=== PATIENT | female | born 1955 | race Caucasian/White ===

== ENCOUNTER → 2017-01-11 | Outpatient (REF) | payer BC | LOC: M SFHCPLAZ 11:55 | PROVIDERS: ATTEND Family Medicine | DX: Z11.59 Encounter for screening for other viral diseases (principal) ==

== ENCOUNTER → 2017-01-16 | Outpatient (CLI) | payer BC ==
--- NOTE | 2017-01-16 11:43 | REP ---
MR LUMBAR SPINE WITHOUT CONTRAST: HISTORY: Back pain. COMPARISON: 11/05/2013. Decreased signal intensity on T2-weighted images is present in the lumbar intervertebral discs. The L1-2 through L4-5 intervertebral discs are decrease in height. These findings are consistent with disc degeneration. There is no disc bulge or herniation at the L1-2 and L5-S1 levels. There is hypertrophy of the posterior articulating facets at the L5-S1. The nerves exit the neural foramina without compression. A diffuse disc bulge is present at the L2-3 level. There are 2 mm of retrolisthesis of L2 on 3. There is minimal compression of the thecal sac. There is hypertrophy of the posterior articulating facets. The L2 nerves exit the neural foramina without compression. A diffuse disc bulge is present at the L3-4 level. There is minimal compression of the thecal sac. There is hypertrophy of the posterior articulating facets. The L3 nerves exit the neural foramina without compression. A diffuse disc bulge is present at the L4-5 level. There is hypertrophy of the ligamental flava and posterior articulating facets. These findings produce minimal central canal stenosis. The L4 nerves exit the neural foramina without compression. The conus medullaris is normal in appearance terminating at the level of the L1-2 intervertebral disc. Normal signal intensity is present in the lumbar vertebral bodies. IMPRESSION: 1. Diffuse disc bulge and retrolisthesis at the L2-3 level with minimal thecal sac compression. 2. Diffuse disc bulge at the L3-4 level with minimal thecal sac compression. 3. Minimal central canal stenosis at the L4-5 level secondary to disc bulge ligamentous and facet hypertrophy. The retrolisthesis at the L2-3 level is a new finding. Signed by Tj Maier MD 01/16/2017 11:46 A
== END ==
LOC: M RAD 09:47
PROVIDERS: ATTEND Family Medicine
DX: M51.26 Other intervertebral disc displacement, lumbar region (principal); Z72.0 Tobacco use

== ENCOUNTER → 2017-03-01 | Outpatient (CLI) | payer BC ==
[~2017-03-01] MED LIST: GASTROGRAFIN SOLUTION 30ML (Q9963) As Ordered ONE; ISOVUE-370 76% 100ML VIAL (Q9967) As Ordered ONE
--- NOTE | 2017-03-02 06:56 | REP ---
Clinical: Right-sided abdominal pain with change in bowel habits. Technique: Axial contrast enhanced images from the lung bases to the pubic symphysis using oral and 100 ml Isovue 370 intravenous contrast material with precontrast images of the abdomen as well as coronal and sagittal re-formations. Findings: Lung bases demonstrate mild plate-like fibroatelectatic changes at the bases. Visualized portions of the heart and pericardium are normal. Liver, spleen, pancreas, gallbladder, bilateral adrenal glands and kidneys are normal. The enteric system is without obstruction or acute inflammatory process. Normal terminal ileum and appendix are identified in the right lower quadrant. Pelvis demonstrates normal bladder and age-appropriate uterus/adnexa small 1.1 cm calcified uterine fibroid is suggested along with cystic change to the right adnexa. No pelvic fluid or ascites. No adenopathy. No free air. Vasculature is normal. Surrounding musculoskeletal structures demonstrate degenerative changes to the lumbosacral spine. Impression: No acute intra-abdominal or pelvic pathology appreciated. Scattered mild chronic changes as described above. Signed by Jerrell Sandy MD 03/02/2017 06:48 A
== END ==
LOC: M RAD 13:49
PROVIDERS: ATTEND Physician Assistant Medical
DX: R10.11 Right upper quadrant pain (principal); R10.31 Right lower quadrant pain; R19.4 Change in bowel habit
CPT/HCPCS: 74178; Q9963; Q9967

== ENCOUNTER → 2017-05-22 | Outpatient (REF) | payer BC ==
[~2017-05-22] MED LIST changes: +ACET1TAB16; -GASTROGRAFIN SOLUTION 30ML (Q9963) As Ordered ONE; -ISOVUE-370 76% 100ML VIAL (Q9967) As Ordered ONE; +NAPR500T3; +OMEP20CA3; +POLY1POW4; +SIMV40TA2; +TESS100C PO; +TRAZ50TA11; +VENL150C43; +VITA200015
[2017-05-22 13:37] LABS: MEAN CORPUSCULAR HEMOGLOBIN 33.4 pg (27.0-33.0); MEAN CORPUSCULAR HGB CONC 33.7 g/dl (32.0-36.5); RED CELL DISTRIBUTION WIDTH 12.3 % (11.5-14.5)
[2017-05-22 13:50] LABS: ALBUMIN 3.5 GM/DL (3.2-5.2); ALBUMIN/GLOBULIN RATIO 1.09 (1.00-1.93); ALKALINE PHOSPHATASE 60 U/L (45-117); ALT/SGPT 19 U/L (12-78); ANION GAP 6 MEQ/L (8-16); AST/SGOT 15 U/L (15-37); BILIRUBIN,TOTAL 0.4 MG/DL (0.2-1.0); BLOOD UREA NITROGEN 17 MG/DL (7-18); CALCIUM LEVEL 9.3 MG/DL (8.8-10.2); CARBON DIOXIDE LEVEL 31 MEQ/L (21-32); CHLORIDE LEVEL 106 MEQ/L (98-107); CHOLESTEROL LEVEL 151 MG/DL (<200); CREATININE FOR GFR 0.86 MG/DL (0.55-1.02); GLOMERULAR FILTRATION RATE > 60.0 (>45); GLUCOSE, FASTING 103 MG/DL (80-110); POTASSIUM SERUM 4.6 MEQ/L (3.5-5.1); SODIUM LEVEL 143 MEQ/L (136-145); TOTAL PROTEIN 6.7 GM/DL (6.4-8.2); TRIGLYCERIDES LEVEL 119 MG/DL (<150)
== END ==
LOC: M LABDRAW1 10:27
PROVIDERS: ATTEND Family Medicine
DX: D51.9 Vitamin B12 deficiency anemia, unspecified (principal); E55.9 Vitamin D deficiency, unspecified; E78.00 Pure hypercholesterolemia, unspecified; I67.9 Cerebrovascular disease, unspecified; F32.9 Major depressive disorder, single episode, unspecified

== ENCOUNTER 2017-06-03 20:11 | Emergency (ER) | payer BC ==
[~2017-06-03] VITALS: Ht 162.6 cm; Wt 79.0 kg
[2017-06-03 20:12] VITALS: BP 139/64
[2017-06-03] MEDS ORDERED: SIMV40TA2 (20:21)
[2017-06-03] MEDS ORDERED: TRAZ50TA11 (20:21)
[2017-06-03] MEDS ORDERED: VITA200015 (20:21)
[2017-06-03] MEDS ORDERED: VENL150C43 (20:21)
[2017-06-03] MEDS ORDERED: NAPR500T3 (20:21)
[2017-06-03] MEDS ORDERED: OMEP20CA3 (20:21)
[2017-06-03] MEDS ORDERED: POLY1POW4 (20:21)
[2017-06-03] MEDS ORDERED: ACET1TAB16 (20:21)
[2017-06-03] MEDS ORDERED: TESS100C PO (21:14)
== END 2017-06-03 21:19 | disposition home or self-care (01) ==
LOC: M ED 20:11
DX: S20.219A Contusion of unspecified front wall of thorax, initial encounter (principal); X58.XXXA Exposure to other specified factors, initial encounter; Y92.9 Unspecified place or not applicable; Y93.9 Activity, unspecified; Y99.9 Unspecified external cause status; Z79.899 Other long term (current) drug therapy

== ENCOUNTER → 2017-06-08 | Outpatient (REF) | payer BC ==
[2017-06-08 17:22] LABS: MEAN CORPUSCULAR HEMOGLOBIN 33.2 pg (27.0-33.0); MEAN CORPUSCULAR HGB CONC 33.6 g/dl (32.0-36.5); MEAN CORPUSCULAR VOLUME 98.9 fl (80.0-96.0); RED CELL DISTRIBUTION WIDTH 12.5 % (11.5-14.5); WHITE BLOOD COUNT 7.3 K/mm3 (4.0-10.0)
[2017-06-08 18:31] LABS: COLLAGEN ADP 106 SECONDS (56-103)
== END ==
LOC: M SFHCPLAZ 15:10
PROVIDERS: ATTEND Family Medicine
DX: R05 Cough (principal); N64.89 Other specified disorders of breast

== ENCOUNTER → 2017-06-12 | Outpatient (CLI) | payer BC ==
--- NOTE | 2017-06-12 13:06 | REP ---
Chest x-ray: Two views. History: Cough. Comparison chest x-ray October 08, 2015. Findings: There is a zone of linear fibrosis in the right middle lobe unchanged from the comparison study. The lungs are otherwise well inflated and clear. Pleural angles are sharp. Mild linear fibrosis is seen in the left base as well also unchanged. There is a granulomatous calcification in the left lower lobe unchanged. Heart size is normal. Pulmonary vasculature is not increased. Impression: No active disease. Signed by Andrade Shay MD 06/12/2017 03:01 P
== END ==
LOC: M RAD 11:45
PROVIDERS: ATTEND Family Medicine
DX: R05 Cough (principal)

== ENCOUNTER → 2017-09-21 | Outpatient (CLI) | payer BC ==
--- NOTE | 2017-09-21 14:10 | REP ---
Clinical: Persistent cough. Comparison: 04/13/2012. Findings: The bilateral lung lofton are well-aerated and clear. Minimal plate-like chronic fibrosis in the right mid lung and left base are unchanged. No consolidation, significant nodule, or mass lesion. Calcified nodule in the left lower lobe consistent with prior granulomas disease. No pleural effusion/reaction. No significant interstitial disease. Tracheobronchial tree is patent and without bronchiectasis. The mediastinum is unremarkable and without adenopathy. Pulmonary vasculature and thoracic aorta appear normal. The heart and pericardium are unremarkable. Surrounding musculoskeletal structures are intact. Impression: Normal noncontrast chest CT. No significant mediastinal or pleuroparenchymal process. Signed by Jerrell Sandy MD 09/21/2017 02:01 P
== END ==
LOC: M RAD 13:17
PROVIDERS: ATTEND Nurse Practitioner Family
DX: R05 Cough (principal)

== ENCOUNTER → 2018-04-23 | Outpatient (REF) | payer OTHER ==
[2018-04-25 00:09] LABS: Lyme Disease IgG/IgM Antibodie <0.91 ISR (0.00-0.90); Lyme Disease IgM Ab Quantitati <0.80 index (0.00-0.79)
== END ==
LOC: M SFHCPLAZ 11:04
DX: Z11.2 Encounter for screening for other bacterial diseases (principal); W57.XXXA Bitten or stung by nonvenomous insect and other nonvenomous arthropods, initial encounter
CPT/HCPCS: 36415

== ENCOUNTER → 2018-05-22 | Outpatient (REF) | payer OTHER ==
[2018-05-24 14:14] LABS: HPV HYBRID CAPTURE II Negative (Negative)
== END ==
LOC: M SFHCPLAZ 11:35
DX: Z12.4 Encounter for screening for malignant neoplasm of cervix (principal)

== ENCOUNTER 2018-05-28 12:06 | Outpatient (RCR) | payer OTHER | END 2018-06-22 | LOC: M PT 12:06 | DX: Z51.89 Encounter for other specified aftercare (principal); M54.5 Low back pain | CPT/HCPCS: 97010 ==

== ENCOUNTER → 2018-05-30 | Outpatient (CLI) | payer OTHER | LOC: M WHC 10:22 | DX: Z12.31 Encounter for screening mammogram for malignant neoplasm of breast (principal); Z78.0 Asymptomatic menopausal state | CPT/HCPCS: 77067 ==

== ENCOUNTER 2018-07-02 10:32 | Outpatient (RCR) | payer OTHER | END 2018-07-22 | LOC: M PT 10:32 | DX: Z51.89 Encounter for other specified aftercare (principal); M54.5 Low back pain | CPT/HCPCS: 97110 ==

== ENCOUNTER 2018-11-24 17:14 | Observation (INO) | payer MEDICAID, MEDICARE, OTHER ==
[~2018-11-24] VITALS: Ht 162.6 cm; Wt 74.1 kg
[~2018-11-24 17:14] MED LIST changes: +NAPR-885; -NAPR500T3; -OMEP20CA3; +OMEP20CA3 PO; -POLY1POW4; +POLY33503; -SIMV40TA2; +SIMV40TA2 PO; +TRAZ-160 PO; -TRAZ50TA11; -VENL150C43; +VENL150C43 PO; -VITA200015; +VITA200015 PO
[2018-11-24] MEDS ORDERED: KETOROLAC 30 MG/ML VIAL (J1885) IV ONE (18:15)
[2018-11-24] MEDS ORDERED: ACETAMINOPHEN 325 MG TAB PO ONE (18:15)
[2018-11-24] MEDS ORDERED: LIDO5CRE6 TOP (18:43)
[2018-11-24] MEDS ORDERED: LIDOCAINE 5% (LIDODERM) PATCH TD ONE (18:45)
[2018-11-24 19:28] LABS: BLOOD UREA NITROGEN 18 MG/DL (7-18); CARBON DIOXIDE LEVEL 28 MEQ/L (21-32); CHLORIDE LEVEL 104 MEQ/L (98-107); CREATININE FOR GFR 0.85 MG/DL (0.55-1.30); GLOMERULAR FILTRATION RATE > 60.0 (>45); GLUCOSE, FASTING 138 MG/DL (70-100); SODIUM LEVEL 139 MEQ/L (136-145)
[2018-11-24] MEDS ORDERED: ISOVUE-370 76% 100ML VIAL (Q9967) As Ordered ONE (19:36)
--- NOTE | 2018-11-24 20:12 | REP ---
Clinical: Severe pain. Rule out aortic dissection. Technique: Axial contrast enhanced images from the thoracic inlet to the upper abdomen with coronal and sagittal re-formations using 100 ml Isovue 370 intravenous contrast material. Images obtained in arterial phase enhancement. Comparison: 09/21/2017. Findings: Appropriate enhancement of the thoracic aorta was obtained and the thoracic aorta is normal in caliber and without atherosclerotic disease, aneurysmal dilatation, or dissection. Heart and pericardium are normal. Pulmonary vasculature appears normal and without evidence for embolus. The bilateral lung lofton are well-aerated and clear. No consolidation, pleural effusion or pneumothorax. No obvious nodule or mass lesion identified. Tracheobronchial tree is patent. No axillary, hilar, or mediastinal adenopathy. Surrounding musculoskeletal structures of the thorax are intact and normal. Impression: Normal contrast enhanced CT of the chest. Normal appearance to the thoracic aorta without aneurysm or dissection. No acute mediastinal or pleuroparenchymal process. Electronically Signed by Jerrell Sandy MD 11/24/2018 08:03 P
--- NOTE | 2018-11-24 20:12 | REP ---
Clinical: Severe pain. Rule out abdominal aortic aneurysm or dissection. Technique: Axial contrast enhanced images from the lung bases to the pubic symphysis with coronal and sagittal re-formations using 100 ml Isovue 370 intravenous contrast material. Images obtained in arterial phase enhancement. Comparison: 03/01/2017. Findings: The descending thoracic aorta and abdominal aorta through the bifurcation to common iliac arteries is normal in appearance and without aneurysm or dissection. Branch vessels including celiac axis, superior mesenteric artery, bilateral renal arteries, inferior mesenteric artery, and bilateral internal and external iliac arteries as well as major branch vessels through the pelvis and groin are normal. There is no evidence for atherosclerotic disease. Liver, spleen, pancreas, gallbladder, right adrenal gland and bilateral kidneys are normal. 1.3 cm enhancing left adrenal nodule appears relatively stable when compared to chest CT dated 2011. Enteric system is without obstruction or acute inflammatory process. Normal terminal ileum and appendix are identified in the right lower quadrant. Scattered sigmoid diverticula noted without acute diverticulitis. Pelvis demonstrates normal bladder and age-appropriate uterus/adnexa. No ascites. No free air. No adenopathy. Musculoskeletal structures demonstrate degenerative changes to the lumbosacral spine without focal osseous abnormality. Impression: 1. Normal appearance to the abdominal aorta and branch vessels without evidence for atherosclerotic disease, aneurysm, or dissection. 2. Sigmoid diverticula without acute diverticulitis. 3. Stable 1.3 cm left adrenal nodule likely atypical adenoma. 4. No acute abdominopelvic pathology appreciated. No ascites, focal inflammatory stranding, or adenopathy. Electronically Signed by Jerrell Sandy MD 11/24/2018 08:04 P
[2018-11-24] MEDS: **NOTE PATIENT COMMENT** MISC XX SCH ×2 (20:59→21:14)
[2018-11-24] MEDS ORDERED: PERCOCET 5MG/325MG TAB PO ONE (21:00)
[2018-11-24] MEDS ORDERED: CYCLOBENZAPRINE 10 MG TAB PO ONE (22:30)
[2018-11-25] MEDS ORDERED: NAPR-885 PO (01:00)
[2018-11-25] MEDS ORDERED: PERCOCET 5MG/325MG TAB PO PRN (01:00)
[2018-11-25] MEDS ORDERED: ZOLP5TAB PO (01:01)
[2018-11-25 01:53] LABS: HEMOGLOBIN 13.6 g/dl (12.0-15.5); MEAN CORPUSCULAR HEMOGLOBIN 32.5 pg (27.0-33.0); MEAN CORPUSCULAR HGB CONC 33.2 g/dl (32.0-36.5); MEAN CORPUSCULAR VOLUME 98.1 fl (80.0-96.0); PLATELET COUNT, AUTOMATED 215 10^3/uL (150-450); RED BLOOD COUNT 4.18 10^6/uL (4.00-5.40)
[2018-11-25 02:00] VITALS: BP 176/88
[2018-11-25] MEDS: zolPIDEM TARTRATE 5 MG TAB PO SCH ×2 (03:25→21:39)
[2018-11-25] MEDS: OMEPRAZOLE 20 MG CAP PO SCH ×3 (03:30→21:39)
[2018-11-25] MEDS: VITAMIN D 1,000 INTERNATIONAL UNITS TABLET PO SCH ×2 (03:30→21:39)
[2018-11-25] MEDS: traZODone 50 MG TAB PO SCH ×2 (03:31→21:39)
[2018-11-25] MEDS: SIMVASTATIN 40 MG TAB PO SCH ×2 (03:31→21:39)
[2018-11-25] MEDS: HEPARIN SOD (PORCINE) 5000 UNITS/ML VIAL SC SCH ×3 (05:33→21:40)
[2018-11-25 06:00] VITALS: BP_SYST 133; BP_SYST 176; BP_DIAS 73; BP_DIAS 88
[2018-11-25] MEDS ORDERED: **NOTE PATIENT COMMENT** MISC XX ONE (06:00)
--- NOTE | 2018-11-25 08:14 | REP ---
Clinical: Trauma. Fall. Technique: Neutral and frog lateral views of the right hip with frontal view of the pelvis. Findings: No acute fracture dislocation. Skeletal structures, joint spaces, and surrounding soft tissues are essentially normal for age. Contrast in the bladder from recent CT examination. Impression: No acute fracture or dislocation. Electronically Signed by Jerrell Sandy MD 11/25/2018 08:06 A
[2018-11-25] MEDS: CYCLOBENZAPRINE 5MG TABLET PO PRN ×2 (09:02→21:39)
[2018-11-25] MEDS: VENLAFAXINE **XR** 75MG CAPSULE PO SCH (09:03)
--- NOTE | 2018-11-25 09:25 | HPE ---
DATE OF ADMISSION: 11/25/2017 CHIEF COMPLAINT: She has lumbosacral paraspinal tenderness, nonradiating, significantly worsening over the last 24-48 hours. PAST MEDICAL HISTORY: The patient is a 63-year-old female. She has a significant past medical history of chronic lower back pain secondary to degenerative joint disease, acid reflux, hyperlipidemia, depression. She is a patient of Dr. Barney. She presented to the emergency room after she had a fall approximately 3-4 days ago. The patient states over the last 36-48 hours, she has had significantly worsening lumbosacral paravertebral back pain, which is exacerbated by movement. The patient has no focal deficit. Sensation appears intact. She has no numbness or paresthesias. She has no bowel or urinary incontinence. Power is limited in the lower extremities secondary to pain. However, there are no neurological signs. She denies any cough, chest pain, shortness of breath, abdominal pain, or urinary symptoms. PAST MEDICAL HISTORY: See history of present illness (HPI). PAST SURGICAL HISTORY: She has had ankle surgery secondary to trauma and fracture. HOME MEDICATIONS: Include: - vitamin D - omeprazole - Zocor - trazodone - Effexor - naproxen as needed Previously, she was on Tylenol with codeine. However, her primary care provider decided to discontinue this and give her a trial of naproxen to control her back pain secondary to degenerative joint disease. ALLERGIES: No known drug allergies. SOCIAL HISTORY: She is a current smoker, 1/2 pack per day. Denies alcohol or illicit drug use. FAMILY HISTORY: Of heart disease, hypertension, diabetes, emphysema. REVIEW OF SYSTEMS: A 12-point review of systems was completed, all of which were negative except those listed in the history of present illness (HPI). ADMISSION VITAL SIGNS: 97.5, 68, 14, saturating at 99% on room air, blood pressure 126/76. PHYSICAL EXAMINATION: GENERAL: She appears well-nourished, mild distress secondary to lumbosacral, sort of paravertebral-type pain. This pain is nonradiating. No numbness or paresthesias noted. HEAD: Is normocephalic, atraumatic. EYES: Extraocular movements are intact. Pupils equal, round, and reactive to light. NECK: Is supple. No jugular venous pressure (JVP). LUNGS: Clear to auscultation on the anterior chest. She was not able to sit up so I could listen to the bases of the lungs. No crackles or wheezing. CARDIOVASCULAR: Regular rate and rhythm. Normal S1, S2. No murmurs, gallops, or rub. ABDOMEN: Is soft, nontender, nondistended. Positive bowel sounds. No rebound. No guarding. She was not able to sit up that I can assess her costovertebral angle (CVA) tenderness. EXTREMITIES: No pitting edema or calf tenderness. SKIN: Is intact. No rashes, lesion. NEUROLOGICAL EXAMINATION: She is alert and oriented times three. Sensation is intact to fine touch in the bilateral upper and lower extremities. Power appears to be intact, somewhat limited secondary to pain in the lower extremities bilaterally. LABORATORIES AND IMAGING: Completed in the emergency room. She does not have a complete blood count (CBC), which I will order immediately, but her basic metabolic profile (BMP) showed a BUN and creatinine of 18/0.85. The rest of it is relatively unremarkable. Will also order a urinalysis to assess for a urinary tract infection (UTI). In the emergency room, she had hip/pelvis x-rays, which have not been officially read, but my evaluation, I do not see any dislocation or fractures. She also had CT angiography of the chest, as well as abdomen and pelvis. The CT of the chest shows a normal contrast enhanced CT of the chest. The CT angiography of the abdomen and pelvis shows normal appearance of the abdominal aorta and the branches, sigmoid diverticula, an atypical adenoma 1.3 cm. The musculoskeletal area of the lumbosacral region shows degenerative changes to the lumbosacral spine without focal osseous abnormality. ASSESSMENT AND PLAN: 1. Intractable back pain, possibly secondary to the spasms or degenerative joint disease. There are no neurological signs. There is no radiation of the pain or numbness or paresthesias to suggest radiculopathy. Will get a physical therapy evaluation. Percocet as needed. Flexeril as needed. I am unclear if there is a level of malingering to the patient's presentation. Will also get a urinalysis (UA) to assess for possible UTI. She does have flank pain. CT of the abdomen shows no signs of pyelonephritis. I was not able to assess for CVA tenderness, and the patient does not appear toxic during the examination and also denies any urinary symptoms. For the rest of her chronic medical conditions: 2. For gastroesophageal reflux disease (GERD), continue omeprazole. 3. For hyperlipidemia, continue Zocor. 4. For depression, continue trazodone and venlafaxine. 5. For insomnia, continue Ambien as needed. 6. Supportive deep venous thrombosis (DVT) prophylaxis, heparin subcutaneously. 7. Gastrointestinal (GI) prophylaxis, she is already on omeprazole. I will be cautious with the administration of Flexeril, as the patient has some chronic Effexor therapy, will not continue this long-term. The patient to be placed on the observation unit.
[2018-11-25 11:50] VITALS: BP 143/71
[2018-11-25] MEDS: MORPHINE 4 MG/ML 1ML VIAL/SYRINGE (J2270) IV PRN ×2 (11:53→18:18)
[2018-11-25 12:35] LABS: AMORPHOUS SEDIMENT SMALL (NEGATIVE); APPEARANCE, URINE HAZY (CLEAR); BACTERIA, URINE AUTO 1+ (NEGATIVE); BILIRUBIN, URINE AUTO NEGATIVE (NEGATIVE); BLOOD, URINE BLOOD 2+ (NEGATIVE); COLOR, URINE YELLOW (YELLOW); GLUCOSE, URINE (UA) AUTO NEGATIVE (NEGATIVE); KETONE, URINE AUTO 1+ mg/dL (NEGATIVE); LEUKOCYTE ESTERASE, URINE AUTO 3+ (NEGATIVE); NITRITE, URINE AUTO NEGATIVE (NEGATIVE); PROTEIN, URINE AUTO NEGATIVE (NEGATIVE); RBC, URINE AUTO 28 /HPF (0-3); SPECIFIC GRAVITY URINE AUTO 1.036 (1.002-1.035); SQUAMOUS EPITHELIAL CELL UR AU 4 /HPF (0-6); UROBILINOGEN, URINE AUTO 0.2 mg/dL (0.0-2.0); WBC, URINE AUTO 79 /HPF (0-3)
[2018-11-25 14:55] VITALS: BP 132/61
[2018-11-25] MEDS: PERCOCET 5MG/325MG TAB PO PRN ×2 (15:00→21:41)
[2018-11-25] MEDS ORDERED: HEPARIN SOD (PORCINE) 5000 UNITS/ML VIAL As Ordered ONE (21:34)
--- NOTE | 2018-11-25 21:55 | IPN ---
DATE: 11/25/2018 Mary is a patient of Dr. Werner, presented with intractable back pain. She has a history of degenerative disc disease. She has an MRI of her lumbosacral spine 01/16/2017 that showed diffuse disc bulges, retrolisthesis at the L2-3 level, with minimal thecal sac compression, minimal septal canal stenosis at L4-5. They noted the retrolisthesis of L2-3 was new compared to prior MRI from 10/2013. She is in significant pain and feels unable to even get out of bed. She had a CT angiogram that ruled out aneurysm or dissection. PHYSICAL EXAMINATION: 143/87, pulse 65, respiratory rate 16, 96% oxygen saturation. She is lying in bed and cannot role left to right. LUNGS: Clear. HEART: Regular rate and rhythm. ABDOMEN: Soft. LOWER BACK: Tender to palpate. Spastic. Could not visualize the area. Normal strength in the lower extremities. IMPRESSION: Intractable back pain. PLAN: I have augmented her analgesic regimen with morphine and higher doses of Percocet. I have ordered MRI of the lumbosacral spine. Physical therapy has been consulted. Rehabilitation has been consulted.
[2018-11-25 22:00] VITALS: BP 111/57
[2018-11-26] MEDS: PERCOCET 5MG/325MG TAB PO PRN ×3 (05:08→19:17)
[2018-11-26] MEDS: HEPARIN SOD (PORCINE) 5000 UNITS/ML VIAL SC SCH ×3 (05:08→21:12)
[2018-11-26 06:00] VITALS: BP 114/62
[2018-11-26 07:26] LABS: HEMATOCRIT 39.1 % (36.0-47.0); HEMOGLOBIN 12.9 g/dl (12.0-15.5); MEAN CORPUSCULAR HEMOGLOBIN 32.6 pg (27.0-33.0); MEAN CORPUSCULAR VOLUME 98.7 fl (80.0-96.0); PLATELET COUNT, AUTOMATED 209 10^3/uL (150-450); RED BLOOD COUNT 3.96 10^6/uL (4.00-5.40); WHITE BLOOD COUNT 7.1 10^3/uL (4.0-10.0)
[2018-11-26 08:37] LABS: CALCIUM LEVEL 9.6 MG/DL (8.8-10.2); CREATININE FOR GFR 1.15 MG/DL (0.55-1.30); GLOMERULAR FILTRATION RATE 50.4 (>45); POTASSIUM SERUM 4.2 MEQ/L (3.5-5.1)
--- NOTE | 2018-11-26 09:45 | REP ---
MRI LUMBAR SPINE WITHOUT CONTRAST: HISTORY: Back pain. COMPARISON: 01/16/2017. Decreased signal intensity on T2-weighted images is present in the lumbar intervertebral discs. The L1-2 through L4-5 intervertebral discs are decreased in height. These findings are consistent with disc degeneration. There is no disc bulge or herniation at the L1-2 and L5-S1 levels. There is hypertrophy of the posterior articulating facets at the L5-S1 level. The nerves exit the neural foramina without compression. A diffuse disc bulge is present at the L2-3 level. There is minimal compression of the thecal sac. There is hypertrophy of the posterior articulating facets. The L2 nerves exit the neural foramina without compression. A diffuse disc bulge is present at the L3-4 level. There is minimal compression of the thecal sac. There is hypertrophy of the posterior articulating facets. The L3 nerves exit the neural foramina without compression. A diffuse disc bulge is present at the L4-5 level. There is hypertrophy of the ligamenta flava and posterior articulating facets. These findings produce minimal central canal stenosis. The L4 nerves exit the neural foramina without compression. The conus medullaris is normal in appearance terminating at the level of the L1-2 intervertebral disc. Normal signal intensity is present in the lumbar vertebral bodies. IMPRESSION: 1. Diffuse disc bulges at the L2-3 and L3-4 levels with minimal thecal sac compression. 2. Minimal central canal stenosis at the L4-5 level secondary to disc bulge, ligamentous and facet hypertrophy. There is no significant change compared to the previous study. Electronically Signed by Tj Maier MD 11/26/2018 09:49 A
[2018-11-26] MEDS: OMEPRAZOLE 20 MG CAP PO SCH ×2 (10:03→21:09)
[2018-11-26] MEDS: VENLAFAXINE **XR** 75MG CAPSULE PO SCH (10:03)
[2018-11-26 14:05] VITALS: BP 115/56
--- NOTE | 2018-11-26 18:04 | IPNPDOC ---
Subjective Date Seen The patient was seen on 11/26/18. Subjective Chief Complaint/HPI Lumbosacral pain Events since last encounter Patient notes pain improvement with pain medication. Morphine helped with pain, last used yesterday. Is currently taking oxycodone/acetaminophen, takes naproxen at home. Has been able to walk around since coming to the hospital since morphine helped with pain. When shifts in bed does still feel burning in low back. Denies changes in pain, changes in sensation at this time. Has history of low back pain. ENT: Denies: Head Aches Pulmonary: Denies: Dyspnea, Cough Cardiovascular: Denies: Chest Pain Objective Physical Examination General Exam: Positive: Alert, Cooperative Eye Exam: Positive: PERRLA ENT Exam: Positive: Atraumatic Neck Exam: Positive: Supple; Negative: JVD Chest Exam: Positive: Clear to auscultation Heart Exam: Positive: Rate Normal Abdomen Exam: Positive: Normal bowel sounds Extremity Exam: Positive: Clubbing; Negative: Cyanosis, Edema Skin Exam: Positive: Other skin issue (ecchymosis right upper quadrant abdomen. ) Psych Exam: Positive: Mental status NL Assessment /Plan Problems (1) Intractable back pain Status: Acute Problem Text: Patient noted improvement with pain medication. Has not used morphine since yesterday, will d/c today. Can give one time if needed. Pain controlled on oxycodone/acetaminophen. Restarting home naproxen to assist with pain control. MRI did not reveal much change from previous MRI. Suspect musculoskeletal cause of pain likely secondary to fall from before admission. Adding nsaids may assist with pain control. Encourage stretching while in bed. PT ordered, continue to work at this time. (2) Low back pain Status: Acute Problem Text: History of low back pain. On Naproxen at home. (3) GERD (gastroesophageal reflux disease) Problem Text: Continue omeprazole. (4) Depression Problem Text: Continue trazodone and venlafaxine. (5) Hyperlipidemia Problem Text: Continue Zocor. (6) Insomnia Problem Text: Continue ambien. Plan/VTE VTE Prophylaxis Ordered?: Yes VS, I&O, 24H, Fishbone Vital Signs/I&O Vital Signs Date Time Temp Pulse Resp B/P (MAP) Pulse Ox O2 Delivery O2 Flow Rate FiO2 11/26/18 14:05 98.0 72 18 115/56 (75) 95 2//19 01:25 Room Air I&O- Last 24 Hours up to 6 AM 11/26/18 06:00 Intake Total 1320 ml Output Total 500 ml Balance 820 ml Laboratory Data 24H LABS Laboratory Tests 2 11/25/18 20:56: Urine Color YELLOW, Urine Appearance HAZY, Urine pH 5.0, Urine Specific [place] 1.029, Urine Protein 1+H, Urine Glucose (UA) NEGATIVE, Urine Ketones TRACEH, Urine Blood 2+H, Urine Nitrite NEGATIVE, Urine Bilirubin NEGATIVE, Urine Urobi linogen 2.0H, Urine Leukocyte Esterase TRACEH, Urine WBC (Auto) 3, Urine RBC (Auto) 13H, Urine Hyaline Casts (Auto) 0, Urine Bacteria (Auto) NEGATIVE, Urine Squamous Epithelial Cells 2, Urine Mucus (Auto) SMALL, Urine Sperm (Auto) 11/26/18 06:42: Nucleated Red Blood Cells % (auto) 0.0, Anion Gap 6L, Glomerular Filtration Rate 50.4, Blood Urea Nitrogen 28#H, Creatinine 1.15, Sodium Level 141, Potassium Level 4.2, Chloride Level 105, Carbon Dioxide Level 30, Calcium Level 9.6 CBC/BMP Laboratory Tests 11/26/18 06:42 Red Blood Count 3.96 L, Mean Corpuscular Volume 98.7 H, Mean Corpuscular Hemoglobin 32.6, Mean Corpuscular Hemoglobin Concent 33.0, Red Cell Distribution Width 12.8, Calcium Level 9.6 Microbiology Microbiology 11/25/18 Urine Culture - Final, Complete GME ATTESTATION GME ATTESTATION My faculty preceptor for this patient encounter was physically present during t he encounter and was fully available. All aspects of the patient interview, examination, medical decision making process, and medical care plan development were reviewed and approved by the faculty preceptor. The faculty preceptor is aware and concurs with the plan as stated in the body of this note and will attest to such by his/her cosignature. BRIAN ASHBY DO Nov 26, 2018 17:25
[2018-11-26 20:00] VITALS: BP 123/74
[2018-11-26] MEDS: VITAMIN D 1,000 INTERNATIONAL UNITS TABLET PO SCH (21:09)
[2018-11-26] MEDS: zolPIDEM TARTRATE 5 MG TAB PO SCH (21:09)
[2018-11-26] MEDS: traZODone 50 MG TAB PO SCH (21:10)
[2018-11-26] MEDS: SIMVASTATIN 40 MG TAB PO SCH (21:10)
[2018-11-26] MEDS: NAPROXEN 250 MG TAB PO SCH (21:12)
[2018-11-27] MEDS: PERCOCET 5MG/325MG TAB PO PRN ×4 (00:12→12:42)
[2018-11-27 04:00] VITALS: BP 117/57
[2018-11-27] MEDS: HEPARIN SOD (PORCINE) 5000 UNITS/ML VIAL SC SCH (04:19)
[2018-11-27 07:03] LABS: HEMATOCRIT 36.5 % (36.0-47.0); HEMOGLOBIN 12.2 g/dl (12.0-15.5); MEAN CORPUSCULAR HEMOGLOBIN 32.9 pg (27.0-33.0); MEAN CORPUSCULAR HGB CONC 33.4 g/dl (32.0-36.5); MEAN CORPUSCULAR VOLUME 98.4 fl (80.0-96.0); PLATELET COUNT, AUTOMATED 188 10^3/uL (150-450); RED BLOOD COUNT 3.71 10^6/uL (4.00-5.40); WHITE BLOOD COUNT 6.5 10^3/uL (4.0-10.0)
[2018-11-27 07:28] LABS: CREATININE FOR GFR 1.01 MG/DL (0.55-1.30); GLOMERULAR FILTRATION RATE 58.6 (>45); POTASSIUM SERUM 4.2 MEQ/L (3.5-5.1)
[2018-11-27 08:30] VITALS: BP 112/61
[2018-11-27] MEDS: VENLAFAXINE **XR** 75MG CAPSULE PO SCH (08:33)
[2018-11-27] MEDS: NAPROXEN 250 MG TAB PO SCH (08:37)
[2018-11-27] MEDS: OMEPRAZOLE 20 MG CAP PO SCH (08:37)
[2018-11-27] MEDS ORDERED: CYCL5TAB PO (11:08)
[2018-11-27] MEDS ORDERED: PERCOCET PO (11:08)
[2018-11-27] MEDS ORDERED: [UNRECOGNIZED DRUG - CODE] SC (11:08)
--- NOTE | 2018-11-27 17:08 | DSES ---
DATE OF ADMISSION: 11/25/2018 DATE OF DISCHARGE: 11/27/2018 BRIEF HISTORY AND PHYSICAL: The patient is a 63-year-old patient of Dr. Werner with a history of chronic low back pain who fell three or four days ago, and 2-3 days later, she developed significantly worsening lumbosacral paravertebral back pain exacerbated by movement with no focal deficit or numbness. No bowel or urinary incontinence. PAST MEDICAL HISTORY: Significant for chronic low back pain secondary to degenerative joint disease, acid reflux, hyperlipidemia, depression. She had been previously on Tylenol with Codeine but her primary care provider (PCP) had discontinued this and put her on naproxen. PERTINENT LABORATORY DATA ON ADMISSION: White count 10, hemoglobin 13.6, platelets 215,000. Sodium 139, potassium 4, BUN 18, creatinine 0.8, glucose 138. CT angiogram showed normal CT. Hip and pelvis showed no fracture or dislocation. Lumbar MRI showed diffuse disc bulging at L2-3, L3-4 with minimal thecal sac compression, minimal central canal stenosis at L4-5 secondary to disc bulge, ligamentous and facet hypertrophy. No significant change compared to previous study 01/16/2017. HOSPITAL COURSE: The patient was admitted for acute intractable low back pain. She was initially given IV morphine as well as Percocet and her naproxen has been restarted as well. Pain seems to be improving gradually, per patient that her pain is significantly improved at this time. She is able to get up out of bed, go to the bathroom by herself, but still somewhat limited by her pain and she has a large flight of stairs she is going to need to navigate at home. She lives alone. At this point, she is continued on Percocet but that would not be the long-term plan. The goal would be to manage her with naproxen and physical therapy, possibly getting her into the pain clinic for injections if felt warranted, and the Percocet should be used short-term. At this point, she is being transferred to acute rehabilitation for continued physical therapy and strengthening in order to be discharged home safely. MEDICATIONS: - naproxen 500 mg twice a day - oxycodone/acetaminophen 1-2 tablets every four hours as needed for pain - venlafaxine 150 mg daily - subcutaneous heparin 5000 international units every eight hours - trazodone 50 mg at bedtime - Ambien 5 mg at bedtime - vitamin D 2000 international units daily - Prilosec 20 mg twice a day - Zocor 40 mg at bedtime - Flexeril 5 mg every eight hours as needed for pain DISCHARGE DIAGNOSES: 1. Acute intractable low back pain. 2. Degenerative disc disease with minimal central canal stenosis at L4-5, chronic. 3. Depression.
== END 2018-11-27 13:50 ==
LOC: M ED 17:14 → M ED INP 18:11 → UNDOADMOB 11-25 00:37 → M ED INP 11-25 00:37 → M MS5PR 11-25 02:00 → M ED INP 11-25 02:00 → OBSVTOIN 11-25 09:25 → INTOOBSV 11-25 09:25 → M PED 11-26 14:00 → M MS5PR 11-26 14:00 → M PED 11-26 14:00 → UNDODISOB 11-27 13:50
PROVIDERS: ADMIT Internal Medicine; ATTEND Family Medicine
DX: M54.5 Low back pain (principal); M48.061 Spinal stenosis, lumbar region without neurogenic claudication; M51.36 Other intervertebral disc degeneration, lumbar region; E78.5 Hyperlipidemia, unspecified; F32.9 Major depressive disorder, single episode, unspecified; F17.210 Nicotine dependence, cigarettes, uncomplicated; Z79.899 Other long term (current) drug therapy; Z91.81 History of falling; G47.00 Insomnia, unspecified
CPT/HCPCS: 36415; 71275; 72148; 73502; 74174; 80048; 81001; 85027; 87086; 96372; 96374; 96375; 96376; 97116; 97161; 97165; 97530; 99284; G0378; J1885; J2270; Q9967

== ENCOUNTER 2018-11-27 11:36 | Inpatient (IN) | payer MEDICARE ==
[~2018-11-27 11:36] MED LIST changes: +CYCL5TAB PO; +LIDO5CRE6 TOP; +NAPR-885 PO; +PERCOCET PO; +ZOLP5TAB PO; +[UNRECOGNIZED DRUG - CODE] SC
[2018-11-27 14:00] VITALS: BP 117/55
[2018-11-27] MEDS ORDERED: BISACODYL 10 MG SUPP PR PRN (16:00)
[2018-11-27] MEDS ORDERED: zolPIDEM TARTRATE 5 MG TAB PO PRN (16:00)
[2018-11-27] MEDS ORDERED: PERCOCET 5MG/325MG TAB PO PRN (16:00)
[2018-11-27] MEDS ORDERED: MOM 30ML SUSPENSION UDC PO PRN (16:00)
[2018-11-27] MEDS ORDERED: ONDANSETRON 4 MG TAB (S0181) PO PRN (16:00)
[2018-11-27] MEDS ORDERED: ACETAMINOPHEN TAB 650MG DOSE (2X325MG) PO PRN (16:00)
[2018-11-27] MEDS: PERCOCET 5MG/325MG TAB PO SCH ×2 (17:20→20:42)
[2018-11-27] MEDS: BACLOFEN 5MG PER 1/2 TABLET PO SCH ×2 (17:20→20:42)
[2018-11-27 20:00] VITALS: BP 114/59
[2018-11-27] MEDS: HEPARIN SOD (PORCINE) 5000 UNITS/ML VIAL SC SCH (20:41)
[2018-11-27] MEDS: VITAMIN D 1,000 INTERNATIONAL UNITS TABLET PO SCH (20:41)
[2018-11-27] MEDS: NAPROXEN 250 MG TAB PO SCH (20:41)
[2018-11-27] MEDS: SENNA 8.6 MG TAB (SENOKOT) PO SCH (20:42)
[2018-11-27] MEDS: OMEPRAZOLE 20 MG CAP PO SCH (20:42)
[2018-11-27] MEDS: MAGNESIUM GLUCONATE 500 MG TAB PO SCH (20:42)
[2018-11-27] MEDS: DOCUSATE SODIUM 100 MG CAP PO SCH (20:42)
[2018-11-27] MEDS: SIMVASTATIN 40 MG TAB PO SCH (20:43)
[2018-11-27] MEDS: traZODone 50 MG TAB PO SCH (20:43)
[2018-11-28 06:00] VITALS: BP 115/57
[2018-11-28 06:54] LABS: BASO # 0.1 10^3/uL (0.0-0.2); BASO % 0.8 % (0.0-1.0); EOS # 0.4 10^3/uL (0.0-0.50); EOS % 6.9 % (0.0-3.0); HEMATOCRIT 35.6 % (36.0-47.0); HEMOGLOBIN 11.3 g/dl (12.0-15.5); LYMPH # 2.2 10^3/uL (1.5-4.5); LYMPH % 35.8 % (24.0-44.0); MEAN CORPUSCULAR HEMOGLOBIN 32.2 pg (27.0-33.0); MEAN CORPUSCULAR HGB CONC 31.7 g/dl (32.0-36.5); MEAN CORPUSCULAR VOLUME 101.4 fl (80.0-96.0); MONO # 0.5 10^3/uL (0.0-0.8); MONO % 7.5 % (0.0-5.0); NEUTROPHILS % 48.7 % (36.0-66.0); PLATELET COUNT, AUTOMATED 188 10^3/uL (150-450); RED BLOOD COUNT 3.51 10^6/uL (4.00-5.40); WHITE BLOOD COUNT 6.3 10^3/uL (4.0-10.0)
[2018-11-28 07:15] LABS: ALBUMIN 3.1 GM/DL (3.2-5.2); BILIRUBIN,TOTAL 0.1 MG/DL (0.2-1.0); CALCIUM LEVEL 9.1 MG/DL (8.8-10.2); CREATININE FOR GFR 1.1 MG/DL (0.55-1.30); GLOMERULAR FILTRATION RATE 53.1 (>45); TOTAL PROTEIN 5.9 GM/DL (6.4-8.2)
[2018-11-28] MEDS: MAGNESIUM GLUCONATE 500 MG TAB PO SCH ×2 (09:15→20:51)
[2018-11-28] MEDS: HEPARIN SOD (PORCINE) 5000 UNITS/ML VIAL SC SCH ×2 (09:15→20:52)
[2018-11-28] MEDS: OMEPRAZOLE 20 MG CAP PO SCH ×2 (09:15→20:52)
[2018-11-28] MEDS: DOCUSATE SODIUM 100 MG CAP PO SCH ×2 (09:15→20:52)
[2018-11-28] MEDS: VENLAFAXINE **XR** 75MG CAPSULE PO SCH (09:15)
[2018-11-28] MEDS: NAPROXEN 250 MG TAB PO SCH ×2 (09:16→20:52)
[2018-11-28] MEDS: PERCOCET 5MG/325MG TAB PO SCH ×3 (09:16→18:37)
[2018-11-28] MEDS: BACLOFEN 5MG PER 1/2 TABLET PO SCH ×3 (09:17→20:52)
--- NOTE | 2018-11-28 12:13 | HPEPDOC ---
Acid Dipper Note DATE OF ADMISSION: Nov 27, 2018 at 13:50 SOURCE OF ADMISSION INFORMATION:[facility] records and patient CHIEF COMPLAINT: low back pain with debility HISTORY OF PRESENT ILLNESS: 63F pmh chronic low back pain, Depression, GERD, HLD who fell at home onto a kassandra ing cabinet and had worsening low back pain for which she presented to [facility] ED on 11/25/18 reporting excruciating pain and difficulty walking. She denied any radiation of the pain, no focal weakness, no bowel/bladder incontinence. Initially there was concern for an abdominal aortic dissection for which a CT abdomen pelvis was ordered showing, Normal appearance to the abdominal aorta and branch vessels without evidence for atherosclerotic disease, aneurysm, or dissection. Sigmoid diverticula without acute diverticulitisStable 1.3 cm left adrenal nodule likely atypical adenoma. X-rays of her pelvis and right hip were negative for fracture. She was given morphine and Naproxen for pain relief and started on Flexeril. She was evaluated by therapy and found to have deficits n ambulation and ADLs and deemed medically appropriate for discharge to ARU on 11/27/18. On admssion she denied any radiating pain and reports never having had any back injections in the past. REVIEW OF SYSTEMS: The following is a completed review of systems and has been reviewed. Review of systems otherwise unremarkable. PAIN: Patient self reports no pain at rest, but low back pain with movement EYES: Negative for recent vision change EARS, NOSE, & THROAT: no throat pain, dysphagia, rhinorrhea CARDIOVASCULAR: denies chest pain or palpitations PULMONARY: Negative. Denies shortness of breath GASTROINTESTINAL: +constipation GENITOURINARY: Negative for dysuria or hematuria MUSCULOSKELETAL: +low back pain NEUROLOGICAL: no seizure or focal deficits HEMATOLOGICAL: + abdominal ecchymosis SKIN:intact PSYCHIATRIC: +depression All other review of systems found to be negative. PAST MEDICAL HISTORY: chronic low back pain, Depression, GERD, HLD PAST SURGICAL HISTORY: ankle surgery ALLERGIES: Please see below. MEDICATIONS: Please see below. SOCIAL HISTORY: Lives with her son, 1/2 pack a day smoker, no ETOH or illicit drugs DIET: Regular PHYSICAL EXAMINATION: VITAL SIGNS: Please see below. GENERAL: Pleasant and cooperative. No acute distress. HEENT: PERRL. Extraocular movements intact. Clear conjunctiva CARDIOVASCULAR: Regular rate and rhythm. No murmurs, rubs, or gallops LUNGS: Clear to auscultation bilaterally. No wheezes. No rhonchi ABDOMEN: Soft, nontender, nondistended. Positive bowel sounds. Normal active bowel sounds NEUROLOGICAL: Alert and oriented times three. Cranial nerves II through XII grossly intact. Sensation grossly intact in C5-T2 and L2-S2 dermatomes brisk patellar reflex, 2+/4 ankles equivocal babinksi bilat negative SLR bilat EXTREMITIES:5\5 strength bilateral upper extremities. 5\5 strength right lower extremity. 5/5 strength in left lower extremity. SKIN: abdominal ecchymosis IMAGING: Imaging documentation personally reviewed by record FUNCTIONAL STATUS: Premorbid: Independent with all activities of daily life as well as mobility On Admission: Contact Guard for ambulation with RW, grooming, lower body dressing, and toileting. GOALS: Independent without AD for ambulation, stairs, dressing, bathing, pain control, medical optimization, improve dynamic balance, assess for DME, family training. ASSESSMENT:63-year-old F with past medical history of low back pain who presents status post fall with intractable low back pain and debility. PLAN: 1. Rehab: OT/PT, assess for DME 2. Neuro: stable 3. Cardio: pmh HLD, continue statin 4. Resp: encourage incentive spirometry, monitor for cough 5. Pain: Percocet Naproxen, will stop Flexeril and trial baclofen 6. Psych: pmh depression, continue Venlafaxine, stable 7. : monitor PVRs and f/u admission UA and Ucx 8. DVT ppx: Heparin 9. GI ppx: Prilosec 10. Dispo: TBD POST ADMISSION PHYSICIAN EVALUATION: Medical and functional status: Description of medical status, medical assessment: As above. Rehabilitation diagnosis and current and prior cold morbid medical conditions as above. Risk of complications and plans to mitigate them as above. Description of functional status current status is as above. Prior status as above. Status compared to preadmission: There are no clinically significant differences between the patient's current status and the information described on the preadmission screening document. Treatment plan anticipated: Treatment plan is as described above. Required disciplines including physical therapy, occupational therapy, others as noted above. Intensity of services: 3 hours a day, 6 days a week. Special considerations: There are no specific special or safety considerations that would likely preclude immediate implementation of an intensive rehabilitation program or subsequently influence the plan of care ATTESTATION: Considering all the information above, it is my best judgment that this patient requires intensive rehabilitation therapy as described above and an inpatient hospital environment due to the complexity of nursing, medical, and rehabilitation needs required by the patient. Furthermore, this patient can reasonably be expected to participate in an benefit from an inpatient rehabilitation stay with an interdisciplinary team approach to the delivery of rehabilitation care under the direction and supervision of rehabilitation physician PROGNOSIS: Excellent ESTIMATED LENGTH OF STAY:8-10 days. PROJECTED DISCHARGE DESTINATION: Home with family support and any durable medical equipment required to increase functional safety and mobility TIME SPENT COUNSELING AND COORDINATING INITIAL CARE: Greater than 70 minutes. Vital Signs Vital Sign - Last 24 Hours 11/27/18 11/27/18 11/27/18 11/27/18 14:00 17:20 20:00 20:42 Temp 96.9 97.5 Pulse 72 72 Resp 18 16 18 18 B/P (MAP) 117/55 (75) 114/59 (77) Pulse Ox 94 93 11/28/18 11/28/18 11/28/18 06:00 09:16 09:46 Temp 98.2 Pulse 66 Resp 18 18 18 B/P (MAP) 115/57 (76) Pulse Ox 94 Laboratory Data CBC/BMP Laboratory Tests 11/28/18 06:24 Red Blood Count 3.51 L, Mean Corpuscular Volume 101.4 H, Mean Corpuscular Hemoglobin 32.2, Mean Corpuscular Hemoglobin Concent 31.7 L, Red Cell Distribution Width 13.0, Neutrophils (%) (Auto) 48.7, Lymphocytes (%) (Auto) 35.8, Monocytes (%) (Auto) 7.5 H, Eosinophils (%) (Auto) 6.9 H, Basophils (%) (Auto) 0.8, Neutrophils # (Auto) 3.0, Lymphocytes # (Auto) 2.2, Monocytes # (Auto) 0.5, Eosinophils # (Auto) 0.4, Basophils # (Auto) 0.1 11/28/18 06:25 Calcium Level 9.1, Aspartate Amino Transf (AST/SGOT) 15, Alanine Aminotransferase (ALT/SGPT) 16, Alkaline Phosphatase 72, Total Bilirubin 0.1 L, Total Protein 5.9 L, Albumin 3.1 L Labs 24H Laboratory Tests 2 11/28/18 06:24: Immature Granulocyte % (Auto) 0.3, White Blood Count 6.3, Red Blood Count 3.51L, Hemoglobin 11.3L, Hematocrit 35.6L, Mean Corpuscular Volume 101.4H, Mean C orpuscular Hemoglobin 32.2, Mean Corpuscular Hemoglobin Concent 31.7L, Red Cell Distribution Width 13.0, Platelet Count 188, Neutrophils (%) (Auto) 48.7, Lymphocytes (%) (Auto) 35.8, Monocytes (%) (Auto) 7.5H, Eosinophils (%) (Auto) 6.9H, Basophils (%) (Auto) 0.8, Neutrophils # (Auto) 3.0, Lymphocytes # (Auto) 2.2, Monocytes # (Auto) 0.5, Eosinophils # (Auto) 0.4, Basophils # (Auto) 0.1, Nucleated Red Blood Cells % (auto) 0.0 11/28/18 06:25: Anion Gap 3L, Glomerular Filtration Rate 53.1, Blood Urea Nitrogen 33H, Creatinine 1.10, Sodium Level 144, Potassium Level 4.0, Chloride Level 109H, Carbon Dioxide Level 32, Calcium Level 9.1, Aspartate Amino Transf (AST/SGOT) 15, Alanine Aminotransferase (ALT/SGPT) 16, Alkaline Phosphatase 72, Total Bilirubin 0.1L, Total Protein 5.9L, Albumin 3.1L, Albumin/Globulin Ratio 1.11 Home Medications Scheduled (Heparin Sodium) 5,000 Unit/Ml Inj, 5,000 UNITS SC Q8H Cholecalciferol (Vitamin D) 2,000 Unit Tab, 2,000 UNITS PO QHS, (Reported) Omeprazole (Omeprazole) 20 Mg Cap, 20 MG PO BID, (Reported) Simvastatin - High Dose (Simvastatin) 40 Mg Tab, 40 MG PO QHS, (Reported) Trazodone HCl (Trazodone HCl) 50 Mg Tab, 50 MG PO QHS, (Reported) Venlafaxine Hydrochloride (Venlafaxine HCl ER) 150 Mg Cap, 150 MG PO DAILY, (Reported) Zolpidem Tartrate (Zolpidem Tartrate) 5 Mg Tab, 5 MG PO QHS, (Reported) Scheduled PRN Cyclobenzaprine HCl (Cyclobenzaprine HCl) 5 Mg Tab, 5 MG PO Q8H PRN for BACK PAIN Naproxen (Naproxen) 500 Mg Tab, 500 MG PO Q6H PRN for PAIN, (Reported) Oxycodone/Acetaminophen (Percocet 5MG/325MG Tablet) 1 Tab Tab, 1 TAB PO Q4HP PRN for MILD/MODERATE PAIN (PS 1-7) Oxycodone/Acetaminophen (Percocet 5MG/325MG Tablet) 1 Tab Tab, 2 TAB PO Q4HP PRN for SEVERE PAIN (PS 8-10) Allergies Coded Allergies: No Known Drug Allergy (Unverified Allergy, Unknown, 06/03/17) NE ARROYO MD Nov 28, 2018 12:12
--- NOTE | 2018-11-28 12:18 | IPNPDOC ---
PM&R Progress Note DATE OF SERVICE: Nov 28, 2018 [employer]acker Progress Note Subjective: Patient reports she did well in therapy and had some pain. She would like her pain medication a little earlier. REVIEW OF SYSTEMS: The following is a completed review of systems and has been reviewed. Review of systems otherwise unremarkable. PAIN: Patient self reports no pain at rest, but low back pain with movement EYES: Negative for recent vision change EARS, NOSE, & THROAT: no throat pain, dysphagia, rhinorrhea CARDIOVASCULAR: denies chest pain or palpitations PULMONARY: Negative. Denies shortness of breath GASTROINTESTINAL: +constipation GENITOURINARY: Negative for dysuria or hematuria MUSCULOSKELETAL: +low back pain NEUROLOGICAL: no seizure or focal deficits HEMATOLOGICAL: + abdominal ecchymosis SKIN:intact PSYCHIATRIC: +depression All other review of systems found to be negative. PHYSICAL EXAMINATION: VITAL SIGNS: Please see below. GENERAL: Pleasant and cooperative. No acute distress. HEENT: PERRL. Extraocular movements intact. Clear conjunctiva CARDIOVASCULAR: Regular rate and rhythm. No murmurs, rubs, or gallops LUNGS: Clear to auscultation bilaterally. No wheezes. No rhonchi ABDOMEN: Soft, nontender, nondistended. Positive bowel sounds. Normal active bowel sounds NEUROLOGICAL: Alert and oriented times three. Cranial nerves II through XII grossly intact. Sensation grossly intact in C5-T2 and L2-S2 dermatomes brisk patellar reflex, 2+/4 ankles equivocal babinksi bilat negative SLR bilat EXTREMITIES:5\5 strength bilateral upper extremities. 5\5 strength right lower extremity. 5/5 strength in left lower extremity. SKIN: abdominal ecchymosis ASSESSMENT:63-year-old F with past medical history of low back pain who presents status post fall with intractable low back pain and debility. PLAN: 1. Rehab: OT/PT, assess for DME, ambulating well 2. Neuro: stable 3. Cardio: pmh HLD, continue statin 4. Resp: encourage incentive spirometry, monitor for cough 5. Pain: Percocet Naproxen, will stop Flexeril and trial baclofen 6. Psych: pmh depression, continue Venlafaxine, stable 7. : monitor PVRs and f/u admission UA and Ucx 8. DVT ppx: Heparin 9. GI ppx: Prilosec, will optimize bowl meds for constipation 10. Dispo: TBD Allergies Coded Allergies: No Known Drug Allergy (Unverified Allergy, Unknown, 06/03/17) Vital Signs Vital Signs Date Time Temp Pulse Resp B/P (MAP) Pulse Ox O2 Delivery O2 Flow Rate FiO2 11/28/18 09:46 18 11/28/18 06:00 98.2 66 115/57 (76) 94 Laboratory Data CBC/BMP Laboratory Tests 11/28/18 06:24 Red Blood Count 3.51 L, Mean Corpuscular Volume 101.4 H, Mean Corpuscular Hemoglobin 32.2, Mean Corpuscular Hemoglobin Concent 31.7 L, Red Cell Distribution Width 13.0, Neutrophils (%) (Auto) 48.7, Lymphocytes (%) (Auto) 35.8, Monocytes (%) (Auto) 7.5 H, Eosinophils (%) (Auto) 6.9 H, Basophils (%) (Auto) 0.8, Neutrophils # (Auto) 3.0, Lymphocytes # (Auto) 2.2, Monocytes # (Auto) 0.5, Eosinophils # (Auto) 0.4, Basophils # (Auto) 0.1 11/28/18 06:25 Calcium Level 9.1, Aspartate Amino Transf (AST/SGOT) 15, Alanine Aminotransferase (ALT/SGPT) 16, Alkaline Phosphatase 72, Total Bilirubin 0.1 L, Total Protein 5.9 L, Albumin 3.1 L Labs 24H Laboratory Tests 2 11/28/18 06:24: Immature Granulocyte % (Auto) 0.3, White Blood Count 6.3, Red Blood Count 3.51L, Hemoglobin 11.3L, Hematocrit 35.6L, Mean Corpuscular Volume 101.4H, Mean Corpuscular Hemoglobin 32.2, Mean Corpuscular Hemoglobin Concent 31.7L, Red Cell Distribution Width 13.0, Platelet Count 188, Neutrophils (%) (Auto) 48.7, Lymphocytes (%) (Auto) 35.8, Monocytes (%) (Auto) 7.5H, Eosinophils (%) (Auto) 6.9H, Basophils (%) (Auto) 0.8, Neutrophils # (Auto) 3.0, Lymphocytes # (Auto) 2.2, Monocytes # (Auto) 0.5, Eosinophils # (Auto) 0.4, Basophils # (Auto) 0.1, Nucleated Red Blood Cells % (auto) 0.0 11/28/18 06:25: Anion Gap 3L, Glomerular Filtration Rate 53.1, Blood Urea Nitrogen 33H, Creatinine 1.10, Sodium Level 144, Potassium Level 4.0, Chloride Level 109H, Carbon Dioxide Level 32, Calcium Level 9.1, Aspartate Amino Transf (AST/SGOT) 15, Alanine Aminotransferase (ALT/SGPT) 16, Alkaline Phosphatase 72, Total Bilirubin 0.1L, Total Protein 5.9L, Albumin 3.1L, Albumin/Globulin Ratio 1.11 Current Medications Current Medications Current Medications Acetaminophen (Tylenol Tab) 650 mg Q4HP PRN PO fever/MILD PAIN (PS 1-4); Start 11/27/18 at 16:00 Baclofen (Lioresal) 5 mg TID PO Last administered on 11/28/18 09:17; Start 11/27/18 at 16:00 Bisacodyl (Dulcolax Suppository) 10 mg DAILYPRN PRN DE CONSTIPATION; Start 11/27/18 at 16:00 Docusate Sodium (Colace) 100 mg BID PO Last administered on 11/28/18 09:15; Start 11/27/18 at 21:00 Heparin Sodium (Porcine) (Heparin) 5,000 units Q12H SC Last administered on 11/28/18 09:15; Start 11/27/18 at 20:00 Home Med (Med Rec Complete!) ASDIRECTED XX ; Start 11/27/18 at 16:30; Stop 11/27/18 at 16:30; Status DC Magnesium Gluconate (Magnesium Gluconate) 500 mg BID PO Last administered on 11/28/18 09:15; Start 11/27/18 at 21:00 Magnesium Hydroxide (Milk Of Magnesia) 30 ml DAILYPRN PRN PO CONSTIPATION; Start 11/27/18 at 16:00 Naproxen (Naprosyn) 500 mg BID PO Last administered on 11/28/18 09:16; Start 11/27/18 at 21:00 Omeprazole (PriLOSEC) 20 mg BID PO Last administered on 11/28/18 09:15; Start 11/27/18 at 21:00 Ondansetron HCl (Zofran) 4 mg Q6HP PRN PO NAUSEA; Start 11/27/18 at 16:00 Oxycodone/ Acetaminophen (Percocet 5mg/ 325mg Tablet) 1 tab QID PO Last administered on 11/28/18 09:16; Start 11/27/18 at 17:00 Oxycodone/ Acetaminophen (Percocet 5mg/ 325mg Tablet) 2 tab Q6H PRN PO SEVERE PAIN (PS 8-10); Start 11/27/18 at 16:00 Senna (Senokot) 1 tab QHS PO Last administered on 11/27/18 20:42; Start 11/27/18 at 21:00 Simvastatin (Zocor) 40 mg QHS PO Last administered on 11/27/18 20:43; Start 11/27/18 at 21:00 Trazodone HCl (Desyrel) 50 mg QHS PO Last administered on 11/27/18 20:43; Start 11/27/18 at 21:00 Venlafaxine HCl (Effexor Xr) 150 mg DAILY PO Last administered on 11/28/18at 09:15; Start 11/28/18 at 09:00 Vitamin D (Vitamin D) 2,000 units QHS PO Last administered on 11/27/18 20:41; Start 11/27/18 at 21:00 Zolpidem Tartrate (Ambien) 5 mg QHSP PRN PO INSOMNIA; Start 11/27/18 at 16:00 NE ARROYO MD Nov 28, 2018 12:18
[2018-11-28 14:00] VITALS: BP 130/75
[2018-11-28 15:13] LABS: APPEARANCE, URINE HAZY (CLEAR); BACTERIA, URINE AUTO NEGATIVE (NEGATIVE); BILIRUBIN, URINE AUTO NEGATIVE (NEGATIVE); BLOOD, URINE BLOOD NEGATIVE (NEGATIVE); COLOR, URINE YELLOW (YELLOW); GLUCOSE, URINE (UA) AUTO NEGATIVE (NEGATIVE); KETONE, URINE AUTO NEGATIVE (NEGATIVE); LEUKOCYTE ESTERASE, URINE AUTO 3+ (NEGATIVE); MUCUS, URINE SMALL (NEGATIVE); NITRITE, URINE AUTO NEGATIVE (NEGATIVE); PROTEIN, URINE AUTO NEGATIVE (NEGATIVE); RBC, URINE AUTO 19 /HPF (0-3); SPECIFIC GRAVITY URINE AUTO 1.024 (1.002-1.035); SQUAMOUS EPITHELIAL CELL UR AU 5 /HPF (0-6); UROBILINOGEN, URINE AUTO 0.2 mg/dL (0.0-2.0); WBC, URINE AUTO 45 /HPF (0-3)
--- NOTE | 2018-11-28 15:53 | CR ---
DATE OF CONSULTATION: 11/28/2018 CHIEF COMPLAINT: Back pain. The patient was recently hospitalized as an observation patient at [facility] with back pain and was now on acute rehabilitation unit (ARU) for continued care to try to get her to a point where she will be suitably improved to permit discharge home. This episode of pain developed without apparent provocation, fall or other injury. Imaging studies which were completed at [facility] include CT angiography of her abdomen and pelvis because of right lower quadrant discomfort she experienced at the time of presentation and this showed a 1.3 cm left adrenal nodule, likely an atypical adenoma according to radiology description, diverticulosis noted. No vascular anomalies seen. There was concern of a vascular catastrophe that might be the purpose for the study. Plain films of her hip and pelvis were normal and thoracic angiogram was done which showed no evidence of dissection. Lumbar spine MRI was performed which showed L1-2 through L4-5 intervertebral disc spaces decreased and findings consistent with degenerative disc disease, hypertrophy of articulating facettes observed at L5-S1, diffuse disc bulge at 2-3, 3-4, and 4-5. There is minimal spinal canal stenosis at L4 but the nerves exit without compression. There is minimal thecal sac compression at levels L2-3 and L3-4. She continues to report right lower abdominal discomfort and a burning numb sensation along the distribution that approximates right T11 dermatome. PAST MEDICAL HISTORY: Remarkable for depression. Her usual primary care physician is Dr. Barney and she is also followed by some of the family medicine residents. Other chronic problems include nocturnal hypoxemia and she has declined continuous positive airway pressure (CPAP), history of hiatal hernia, esophageal reflux, hypercholesterolemia with a calculated atherosclerotic cardiovascular disease (ASCVD) risk of 4.9% as estimated in May of 2017. She reports being a current smoker. She has no known drug allergies. OUTPATIENT MEDICATIONS: Before admission, according to her office record, includes: - Effexor XR 150 once a day - trazodone 50 mg at bedtime as needed for sleep - Ambien 5 mg at bedtime as needed for sleep - simvastatin 40 mg by mouth in the evening daily - naproxen sodium 500 mg by mouth twice a day as needed for pain - vitamin D 2000 units daily FAMILY HISTORY: Remarkable for father dying at early age from pancreatic cancer, age 62. Mother has severe asthma at 85. She also has a past medical history that includes a history of anemia associated with vitamin B12 deficiency. EXAMINATION: VITAL SIGNS: Blood pressure 115/57, pulse 66 and regular, respiratory rate 18 unlabored, oxygen saturation 94% on room air, and temperature 98.2. GENERAL: Well-developed, well-nourished, in no apparent distress, supine examination, in bed, alert, pleasant, cooperative. HEENT: Normocephalic, atraumatic. Pupils equal and reactive. Full extraocular movements. No facial asymmetry. NECK: Movements are unremarkable. No neck mass noted. LUNGS: Equal expansion. No wheezing, rales or rhonchi. HEART: Regular rhythm. No murmurs or gallops are identified. ABDOMEN: Soft, flat, nontender. Bowel sounds active. No guarding. Sensory deficit right lower abdomen just above the inguinal ligament suggestive of T11 or perhaps T12 sensory pattern. No rashes evident at this location. She denies bowel or bladder control difficulties. She moves her lower extremities well with no evidence of weakness in the hip flexors or dorsiflexion, plantar flexion, movements of the ankles. Sensory examination of the peripheries is also normal. Her mood is neutral and no motor deficits demonstrated. Gait was not tested, however, at this time. LABORATORY DATA: Hemoglobin is 11.3. She was 13.6 on initial admission. BUN 33, creatinine 1.1, potassium 4.0, albumin is somewhat low at 3.1. Urine showed 2+ blood, 13 red cells per high-power field, and she had 3+ leukocyte esterase on urinalysis done eight hours earlier. Urine culture on the first sample was no growth. ASSESSMENT: Patient with low back pain, possible right T11 radicular sensory deficit, history of smoking, microscopic hematuria. PLAN: She will complete a rehabilitation program here at [facility] and hopefully be discharged soon. We expect at followup with her primary care doctor attention will need to be directed toward followup regarding the microscopic hematuria and the investigation subsequently of the adenoma identified on the CT, suspected adenoma of the left adrenal. We will follow with you until discharge. Thank you very much for asking us to continue to be involved with Mary's care.
[2018-11-28] MEDS ORDERED: LACTULOSE 20 GM/30 ML SYRUP UD PO ONE (16:00)
[2018-11-28] MEDS ORDERED: BISACODYL 10 MG SUPP PR ONE (19:00)
[2018-11-28 20:00] VITALS: BP 138/64
[2018-11-28] MEDS: SENNA 8.6 MG TAB (SENOKOT) PO SCH (20:51)
[2018-11-28] MEDS: SIMVASTATIN 40 MG TAB PO SCH (20:52)
[2018-11-28] MEDS: traZODone 50 MG TAB PO SCH (20:52)
[2018-11-28] MEDS: VITAMIN D 1,000 INTERNATIONAL UNITS TABLET PO SCH (20:53)
[2018-11-29] MEDS: PERCOCET 5MG/325MG TAB PO SCH ×4 (01:05→18:42)
[2018-11-29 06:00] VITALS: BP 121/57
[2018-11-29] MEDS: BACLOFEN 5MG PER 1/2 TABLET PO SCH ×3 (08:55→21:12)
[2018-11-29] MEDS: HEPARIN SOD (PORCINE) 5000 UNITS/ML VIAL SC SCH ×2 (08:55→21:13)
[2018-11-29] MEDS: MAGNESIUM GLUCONATE 500 MG TAB PO SCH ×2 (08:55→21:14)
[2018-11-29] MEDS: OMEPRAZOLE 20 MG CAP PO SCH ×2 (08:55→21:12)
[2018-11-29] MEDS: VENLAFAXINE **XR** 75MG CAPSULE PO SCH (08:56)
[2018-11-29] MEDS: NAPROXEN 250 MG TAB PO SCH ×2 (08:56→21:13)
[2018-11-29] MEDS: DOCUSATE SODIUM 100 MG CAP PO SCH ×2 (09:01→21:12)
[2018-11-29 14:00] VITALS: BP 122/59
--- NOTE | 2018-11-29 14:08 | IPNPDOC ---
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 REVIEW OF SYSTEMS: The following is a completed review of systems and has been reviewed. Review of systems otherwise unremarkable. PAIN: Patient self reports no pain at rest, but low back pain with movement EYES: Negative for recent vision change EARS, NOSE, & THROAT: no throat pain, dysphagia, rhinorrhea CARDIOVASCULAR: denies chest pain or palpitations PULMONARY: Negative. Denies shortness of breath GASTROINTESTINAL: +constipation (improved) GENITOURINARY: Negative for dysuria or hematuria MUSCULOSKELETAL: +low back pain NEUROLOGICAL: no seizure or focal deficits HEMATOLOGICAL: + abdominal ecchymosis SKIN:intact PSYCHIATRIC: +depression All other review of systems found to be negative. PHYSICAL EXAMINATION: VITAL SIGNS: Please see below. GENERAL: Pleasant and cooperative. No acute distress. HEENT: PERRL. Extraocular movements intact. Clear conjunctiva CARDIOVASCULAR: Regular rate and rhythm. No murmurs, rubs, or gallops LUNGS: Clear to auscultation bilaterally. No wheezes. No rhonchi ABDOMEN: Soft, nontender, nondistended. Positive bowel sounds. Normal active bowel sounds NEUROLOGICAL: Alert and oriented times three. Cranial nerves II through XII grossly intact. Sensation grossly intact in C5-T2 and L2-S2 dermatomes brisk patellar reflex, 2+/4 ankles equivocal babinksi bilat negative SLR bilat EXTREMITIES:5\5 strength bilateral upper extremities. 5\5 strength right lower extremity. 5/5 strength in left lower extremity. SKIN: abdominal ecchymosis ASSESSMENT:63-year-old F with past medical history of low back pain who presents status post fall with intractable low back pain and debility. PLAN: 1. Rehab: OT/PT, assess for DME, ambulating well without AD and minimal back pain, will trial apartment 2. Neuro: stable 3. Cardio: pmh HLD, continue statin 4. Resp: encourage incentive spirometry, monitor for cough 5. Pain: Percocet Naproxen, will stop Flexeril and trial baclofen 6. Psych: pmh depression, continue Venlafaxine, stable 7. : voiding well, admission UA and Ucx negative 8. DVT ppx: Heparin 9. GI ppx: Prilosec, will optimize bowel meds for constipation 10. Dispo: 12/03/18 to home, progressing towards goals Allergies Coded Allergies: No Known Drug Allergy (Unverified Allergy, Unknown, 06/03/17) Vital Signs Vital Signs Date Time Temp Pulse Resp B/P (MAP) Pulse Ox O2 Delivery O2 Flow Rate FiO2 11/29/18 12:55 20 11/29/18 06:00 96.9 66 121/57 (78) 95 Microbiology Microbiology 11/27/18 Urine Culture - Final, Complete Current Medications Current Medications Current Medications Acetaminophen (Tylenol Tab) 650 mg Q4HP PRN PO fever/MILD PAIN (PS 1-4); Start 11/27/18 at 16:00 Baclofen (Lioresal) 5 mg TID PO Last administered on 11/29/18 08:55; Start 11/27/18 at 16:00 Bisacodyl (Dulcolax Suppository) 10 mg DAILYPRN PRN [place] CONSTIPATION; Start 11/27/18 at 16:00 Docusate Sodium (Colace) 100 mg BID PO Last administered on 11/28/18at 20:52; Start 11/27/18 at 21:00 Heparin Sodium (Porcine) (Heparin) 5,000 units Q12H SC Last administered on 11/29/18 08:55; Start 11/27/18 at 20:00 Home Med (Med Rec Complete!) ASDIRECTED XX ; Start 11/27/18 at 16:30; Stop 11/27 at 16:30; Status DC Magnesium Gluconate (Magnesium Gluconate) 500 mg BID PO Last administered on 11/29/18at 08:55; Start 11/27/18 at 21:00 Magnesium Hydroxide (Milk Of Magnesia) 30 ml DAILYPRN PRN PO CONSTIPATION; Start 11/27/18 at 16:00 Naproxen (Naprosyn) 500 mg BID PO Last administered on 11/29/18at 08:56; Start 11/27/18 at 21:00 Omeprazole (PriLOSEC) 20 mg BID PO Last administered on 11/29/18 08:55; Start 11/27/18 at 21:00 Ondansetron HCl (Zofran) 4 mg Q6HP PRN PO NAUSEA; Start 11/27/18 at 16:00 Oxycodone/ Acetaminophen (Percocet 5mg/ 325mg Tablet) 1 tab Q6H PO Last administered on 11/29/18 12:55; Start 11/28/18 at 13:00 Oxycodone/ Acetaminophen (Percocet 5mg/ 325mg Tablet) 1 tab QID PO Last administered on 11/28/18 09:16; Start 11/27/18 at 17:00; Stop 11/28/18 at 12:41; Status DC Oxycodone/ Acetaminophen (Percocet 5mg/ 325mg Tablet) 2 tab Q6H PRN PO SEVERE PAIN (PS 8-10); Start 11/27/18 at 16:00 Senna (Senokot) 1 tab QHS PO Last administered on 11/28/18 20:51; Start 11/27/18 at 21:00 Simvastatin (Zocor) 40 mg QHS PO Last administered on 11/28/18 20:52; Start 11/27/18 at 21:00 Trazodone HCl (Desyrel) 50 mg QHS PO Last administered on 11/28/18 20:52; Start 11/27/18 at 21:00 Venlafaxine HCl (Effexor Xr) 150 mg DAILY PO Last administered on 11/29/18 08:56; Start 11/28/18 at 09:00 Vitamin D (Vitamin D) 2,000 units QHS PO Last administered on 11/28/18 20:53; Start 11/27/18 at 21:00 Zolpidem Tartrate (Ambien) 5 mg QHSP PRN PO INSOMNIA; Start 11/27/18 at 16:00 NE ARROYO MD Nov 29, 2018 14:08
[2018-11-29] MEDS: SIMVASTATIN 40 MG TAB PO SCH (21:12)
[2018-11-29] MEDS: VITAMIN D 1,000 INTERNATIONAL UNITS TABLET PO SCH (21:13)
[2018-11-29] MEDS: traZODone 50 MG TAB PO SCH (21:13)
[2018-11-29] MEDS: SENNA 8.6 MG TAB (SENOKOT) PO SCH (21:14)
[2018-11-29 22:00] VITALS: BP 132/60
[2018-11-30] MEDS: PERCOCET 5MG/325MG TAB PO SCH ×4 (01:03→19:38)
[2018-11-30 06:34] VITALS: BP 113/52
[2018-11-30] MEDS: BACLOFEN 5MG PER 1/2 TABLET PO SCH ×3 (09:23→21:48)
[2018-11-30] MEDS: NAPROXEN 250 MG TAB PO SCH ×2 (09:23→21:48)
[2018-11-30] MEDS: VENLAFAXINE **XR** 75MG CAPSULE PO SCH (09:23)
[2018-11-30] MEDS: MAGNESIUM GLUCONATE 500 MG TAB PO SCH ×2 (09:23→21:47)
[2018-11-30] MEDS: DOCUSATE SODIUM 100 MG CAP PO SCH ×2 (09:23→21:48)
[2018-11-30] MEDS: OMEPRAZOLE 20 MG CAP PO SCH ×2 (09:23→21:48)
[2018-11-30] MEDS: HEPARIN SOD (PORCINE) 5000 UNITS/ML VIAL SC SCH ×2 (09:24→21:46)
[2018-11-30 14:00] VITALS: BP 119/67
[2018-11-30] MEDS ORDERED: NEUR100C PO (15:41)
[2018-11-30] MEDS ORDERED: PERCOCET PO (15:41)
[2018-11-30] MEDS ORDERED: SIMV40TA2 PO (15:41)
[2018-11-30] MEDS ORDERED: BACL10TA2 PO (15:41)
[2018-11-30] MEDS ORDERED: VENL75CA47 PO (15:41)
[2018-11-30] MEDS ORDERED: OMEP20CA3 PO (15:41)
--- NOTE | 2018-11-30 15:45 | IPNPDOC ---
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 REVIEW OF SYSTEMS: The following is a completed review of systems and has been reviewed. Review of systems otherwise unremarkable. PAIN: Patient self reports no pain at rest, but low back pain with movement EYES: Negative for recent vision change EARS, NOSE, & THROAT: no throat pain, dysphagia, rhinorrhea CARDIOVASCULAR: denies chest pain or palpitations PULMONARY: Negative. Denies shortness of breath GASTROINTESTINAL: +constipation (improved) GENITOURINARY: Negative for dysuria or hematuria MUSCULOSKELETAL: +low back pain NEUROLOGICAL: no seizure or focal deficits HEMATOLOGICAL: + abdominal ecchymosis SKIN:intact PSYCHIATRIC: +depression All other review of systems found to be negative. PHYSICAL EXAMINATION: VITAL SIGNS: Please see below. GENERAL: Pleasant and cooperative. No acute distress. HEENT: PERRL. Extraocular movements intact. Clear conjunctiva CARDIOVASCULAR: Regular rate and rhythm. No murmurs, rubs, or gallops LUNGS: Clear to auscultation bilaterally. No wheezes. No rhonchi ABDOMEN: Soft, nontender, nondistended. Positive bowel sounds. Normal active bowel sounds NEUROLOGICAL: Alert and oriented times three. Cranial nerves II through XII grossly intact. Sensation grossly intact in C5-T2 and L2-S2 dermatomes brisk patellar reflex, 2+/4 ankles equivocal babinksi bilat negative SLR bilat EXTREMITIES:5\5 strength bilateral upper extremities. 5\5 strength right lower extremity. 5/5 strength in left lower extremity. SKIN: abdominal ecchymosis ASSESSMENT:63-year-old F with past medical history of low back pain who presents status post fall with intractable low back pain and debility. PLAN: 1. Rehab: OT/PT, assess for DME, ambulating well without AD and minimal back sahra n, room privileges 2. Neuro: stable 3. Cardio: pmh HLD, continue statin 4. Resp: encourage incentive spirometry, monitor for cough 5. Pain: Percocet Naproxen, will stop Flexeril and trial baclofen-improving, will trial low dose gabapentin and schedule outpatient pain management appointment 6. Psych: pmh depression, continue Venlafaxine, stable 7. : voiding well, admission UA and Ucx negative 8. DVT ppx: Heparin 9. GI ppx: Prilosec, will optimize bowel meds for constipation 10. Dispo: 12/01/18 to home, progressing towards goals Allergies Coded Allergies: No Known Drug Allergy (Unverified Allergy, Unknown, 06/03/17) Vital Signs Vital Signs Date Time Temp Pulse Resp B/P (MAP) Pulse Ox O2 Delivery O2 Flow Rate FiO2 11/30/18 14:08 18 11/30/18 06:34 97.6 72 113/52 (72) 97 Microbiology Microbiology 11/27/18 Urine Culture - Final, Complete Current Medications Current Medications Current Medications Acetaminophen (Tylenol Tab) 650 mg Q4HP PRN PO fever/MILD PAIN (PS 1-4); Start 11/27/18 at 16:00 Baclofen (Lioresal) 5 mg TID PO Last administered on 11/30/18 09:23; Start 11/27/18 at 16:00 Bisacodyl (Dulcolax Suppository) 10 mg DAILYPRN PRN [place] CONSTIPATION; Start 11/27/18 at 16:00 Docusate Sodium (Colace) 100 mg BID PO Last administered on 11/30/18 09:23; Start 11/27/18 at 21:00 Heparin Sodium (Porcine) (Heparin) 5,000 units Q12H SC Last administered on 11/30/18 09:24; Start 11/27/18 at 20:00 Home Med (Med Rec Complete!) ASDIRECTED XX ; Start 11/27/18 at 16:30; Stop 11/27/18 at 16:30; Status DC Magnesium Gluconate (Magnesium Gluconate) 500 mg BID PO Last administered on 11/30/18 09:23; Start 11/27/18 at 21:00 Magnesium Hydroxide (Milk Of Magnesia) 30 ml DAILYPRN PRN PO CONSTIPATION; Start 11/27/18 at 16:00 Naproxen (Naprosyn) 500 mg BID PO Last administered on 11/30/18 09:23; Start 11/27/18 at 21:00 Omeprazole (PriLOSEC) 20 mg BID PO Last administered on 11/30/18 09:23; Start 11/27/18 at 21:00 Ondansetron HCl (Zofran) 4 mg Q6HP PRN PO NAUSEA; Start 11/27/18 at 16:00 Oxycodone/ Acetaminophen (Percocet 5mg/ 325mg Tablet) 1 tab Q6H PO Last administered on 11/30/18 13:38; Start 11/28/18 at 13:00 Oxycodone/ Acetaminophen (Percocet 5mg/ 325mg Tablet) 1 tab QID PO Last administered on 11/28/18 09:16; Start 11/27/18 at 17:00; Stop 11/28/18 at 12:41; Status DC Oxycodone/ Acetaminophen (Percocet 5mg/ 325mg Tablet) 2 tab Q6H PRN PO SEVERE PAIN (PS 8-10); Start 11/27/18 at 16:00 Senna (Senokot) 1 tab QHS PO Last administered on 11/29/18 21:14; Start 11/27/18 at 21:00 Simvastatin (Zocor) 40 mg QHS PO Last administered on 11/29/18 21:12; Start 11/27/18 at 21:00 Trazodone HCl (Desyrel) 50 mg QHS PO Last administered on 11/29/18 21:13; Start 11/27/18 at 21:00 Venlafaxine HCl (Effexor Xr) 150 mg DAILY PO Last administered on 11/30/18 09:23; Start 11/28/18 at 09:00 Vitamin D (Vitamin D) 2,000 units QHS PO Last administered on 11/29/18 21:13; Start 11/27/18 at 21:00 Zolpidem Tartrate (Ambien) 5 mg QHSP PRN PO INSOMNIA; Start 11/27/18 at 16:00 NE ARROYO MD Nov 30, 2018 15:45
[2018-11-30 20:00] VITALS: BP 130/60
[2018-11-30] MEDS: VITAMIN D 1,000 INTERNATIONAL UNITS TABLET PO SCH (21:47)
[2018-11-30] MEDS: SENNA 8.6 MG TAB (SENOKOT) PO SCH (21:48)
[2018-11-30] MEDS: traZODone 50 MG TAB PO SCH (21:48)
[2018-11-30] MEDS: SIMVASTATIN 40 MG TAB PO SCH (21:48)
[2018-12-01] MEDS: PERCOCET 5MG/325MG TAB PO SCH ×2 (01:26→06:05)
[2018-12-01 06:00] VITALS: BP 128/60
[2018-12-01] MEDS: HEPARIN SOD (PORCINE) 5000 UNITS/ML VIAL SC SCH (08:00)
[2018-12-01] MEDS: DOCUSATE SODIUM 100 MG CAP PO SCH (08:37)
[2018-12-01] MEDS: BACLOFEN 5MG PER 1/2 TABLET PO SCH (08:37)
[2018-12-01] MEDS: OMEPRAZOLE 20 MG CAP PO SCH (08:37)
[2018-12-01] MEDS: NAPROXEN 250 MG TAB PO SCH (08:38)
[2018-12-01] MEDS: MAGNESIUM GLUCONATE 500 MG TAB PO SCH (08:38)
[2018-12-01] MEDS: VENLAFAXINE **XR** 75MG CAPSULE PO SCH (08:38)
--- NOTE | 2018-12-12 08:39 | PMRDS ---
DATE OF ADMISSION: 11/27/2018 DATE OF DISCHARGE: 12/01/2018 CHIEF COMPLAINT/DISCHARGE DIAGNOSIS: Low back pain with debility. HISTORY OF PRESENT ILLNESS: This is a 63-year-old female with a past medical history of chronic low back pain, depression, gastroesophageal reflux disease (GERD), hyperlipidemia, who fell at home onto a filing cabinet, and had worsening low back pain for which she presented to [facility] emergency department on 11/25/2018 reporting excruciating pain and difficulty walking. She denied any radiation to pain, no focal weakness, no bowel or bladder incontinence. Initially there was concern for an abdominal aortic dissection for which a CT abdomen and pelvis was ordered showing "normal appearance of the abdominal aorta and branch vessels without evidence of atherosclerotic disease, aneurysm or dissection...sigmoid diverticula without acute diverticulitis...stable 1.3 cm left adrenal nodule likely atypical adenoma". X-rays of the pelvis and right hip were negative for fracture. She was given morphine and Naproxen for pain relief and started on Flexeril. She was evaluated by therapy and found to have deficits in ambulation and activities of daily living (ADL)s and deemed medically appropriate for discharge to ARU on 11/27/2018. On admission, she denied any radiating pain. Reports never having any back injections in the past. PAST MEDICAL HISTORY: Chronic low back pain. Depression. Gastroesophageal reflux disease (GERD). Patient was admitted and enrolled in comprehensive physical therapy (PT), occupational therapy (OT) program. She received 24 hour nursing supervision and a team meeting was held to discuss her case. During her hospital course, she was maintained on her statin for hyperlipidemia. She was maintained on venlafaxine for her history of depression. She was trialed on low dose gabapentin and scheduled for an outpatient pain management appointment and sent home on Percocet and Naprosyn for her low back pain. Her admission UA and urine culture were negative and she is maintained on heparin for deep venous thrombosis (DVT) prophylaxis. She made quick gains in physical therapy and occupational therapy. Was quickly given room privileges. Did not require assistive device. Her back pain was minimal during her hospital course. She was deemed functionally and medically stable to return to home. DISCHARGE MEDICATIONS: - Baclofen - gabapentin - omeprazole - Percocet - simvastatin - venlafaxine - vitamin D2 FUNCTIONAL HISTORY: Upon discharge, patient was independent with all function and mobility, able to ambulate 500 feet, climb stairs times 24 stairs, showed no loss of balance and overall did quite well.
== END 2018-12-01 12:05 | disposition home or self-care (01) | DRG 552 ==
LOC: M PM&R 13:50
PROVIDERS: ADMIT Physical Medicine & Rehabilitation; ATTEND Physical Medicine & Rehabilitation
DX: M51.36 Other intervertebral disc degeneration, lumbar region (principal); K21.9 Gastro-esophageal reflux disease without esophagitis; F32.9 Major depressive disorder, single episode, unspecified; F17.200 Nicotine dependence, unspecified, uncomplicated; E78.5 Hyperlipidemia, unspecified; D35.00 Benign neoplasm of unspecified adrenal gland; R26.2 Difficulty in walking, not elsewhere classified; Z79.899 Other long term (current) drug therapy; R31.1 Benign essential microscopic hematuria

== ENCOUNTER → 2018-12-25 | Outpatient (REF) | payer MEDICARE ==
[~2018-12-25] MED LIST changes: +BACL10TA2 PO; +NEUR100C PO; +VENL75CA47 PO
== END ==
LOC: M SFHCPLAZ 14:16
PROVIDERS: ATTEND Obstetrics & Gynecology
DX: R31.29 Other microscopic hematuria (principal); R93.5 Abnormal findings on diagnostic imaging of other abdominal regions, including retroperitoneum; Z53.8 Procedure and treatment not carried out for other reasons

== ENCOUNTER → 2019-01-04 | Outpatient (CLI) | payer MEDICARE | LOC: M LAB 14:58 | PROVIDERS: ATTEND Obstetrics & Gynecology | DX: R31.29 Other microscopic hematuria (principal); R93.5 Abnormal findings on diagnostic imaging of other abdominal regions, including retroperitoneum ==

== ENCOUNTER → 2019-01-04 | Outpatient (CLI) | payer MEDICARE ==
[2019-01-04 15:49] LABS: APPEARANCE, URINE HAZY (CLEAR); BACTERIA, URINE AUTO 2+ (NEGATIVE); BILIRUBIN, URINE AUTO 1+ (NEGATIVE); BLOOD, URINE BLOOD NEGATIVE (NEGATIVE); COLOR, URINE AMBER (YELLOW); GLUCOSE, URINE (UA) AUTO NEGATIVE (NEGATIVE); KETONE, URINE AUTO NEGATIVE (NEGATIVE); LEUKOCYTE ESTERASE, URINE AUTO 3+ (NEGATIVE); MUCUS, URINE SMALL (NEGATIVE); NITRITE, URINE AUTO NEGATIVE (NEGATIVE); PROTEIN, URINE AUTO 1+ mg/dL (NEGATIVE); RBC, URINE AUTO 14 /HPF (0-3); SPECIFIC GRAVITY URINE AUTO 1.033 (1.002-1.035); SQUAMOUS EPITHELIAL CELL UR AU 34 /HPF (0-6); WBC, URINE AUTO 19 /HPF (0-3)
[2019-01-04 15:56] LABS: HEMATOCRIT 37.7 % (36.0-47.0); HEMOGLOBIN 12.3 g/dl (12.0-15.5); MEAN CORPUSCULAR HEMOGLOBIN 32.9 pg (27.0-33.0); MEAN CORPUSCULAR HGB CONC 32.6 g/dl (32.0-36.5); MEAN CORPUSCULAR VOLUME 100.8 fl (80.0-96.0); PLATELET COUNT, AUTOMATED 215 10^3/uL (150-450); RED BLOOD COUNT 3.74 10^6/uL (4.00-5.40); WHITE BLOOD COUNT 6.3 10^3/uL (4.0-10.0)
[2019-01-04 16:09] LABS: ALT/SGPT 14 U/L (12-78); BILIRUBIN,TOTAL 0.4 MG/DL (0.2-1.0); BLOOD UREA NITROGEN 25 MG/DL (7-18); CALCIUM LEVEL 8.7 MG/DL (8.8-10.2); CARBON DIOXIDE LEVEL 32 MEQ/L (21-32); CHLORIDE LEVEL 108 MEQ/L (98-107); CHOLESTEROL LEVEL 166 MG/DL (<200); CHOLESTEROL RISK RATIO 2.405 (<5); CREATININE FOR GFR 0.88 MG/DL (0.55-1.30); GLOMERULAR FILTRATION RATE > 60.0 (>45); GLUCOSE, FASTING 98 MG/DL (70-100); HDL CHOLESTEROL 69 MG/DL (>40); LDL CHOLESTEROL 81 MG/DL (<100); NON-HDL-C 97 MG/DL; POTASSIUM SERUM 4.7 MEQ/L (3.5-5.1); SODIUM LEVEL 143 MEQ/L (136-145); TOTAL 25(OH) VITAMIN D 39.9 NG/ML (30.0-100.0); TOTAL PROTEIN 6.7 GM/DL (6.4-8.2); TRIGLYCERIDES LEVEL 79 MG/DL (<150); VITAMIN B12 LEVEL 302 PG/ML
[2019-01-04 16:10] LABS: FOLATE 11.3 NG/ML
== END ==
LOC: M LAB 14:50
PROVIDERS: ATTEND Family Medicine
DX: D51.9 Vitamin B12 deficiency anemia, unspecified (principal); F32.9 Major depressive disorder, single episode, unspecified; E78.00 Pure hypercholesterolemia, unspecified; E55.9 Vitamin D deficiency, unspecified

== ENCOUNTER → 2019-08-12 | Outpatient (REF) | payer MEDICARE ==
[~2019-08-12] MED LIST changes: +HEPA500011 SC; -OMEP20CA3 PO; +OMEP20CA4 PO; -TRAZ-160 PO; +TRAZ-252 PO; -[UNRECOGNIZED DRUG - CODE] SC
[2019-08-12 14:36] LABS: HEMOGLOBIN A1c 5.8 %
[2019-08-12 14:52] LABS: FREE T4 0.82 NG/DL (0.76-1.46); THYROID STIMULATING HORMONE 2.2 uIU/ML (0.358-3.740)
== END ==
LOC: M SFHCPLAZ 12:25
PROVIDERS: ATTEND Family Medicine
DX: R63.5 Abnormal weight gain (principal); Z13.1 Encounter for screening for diabetes mellitus

== ENCOUNTER → 2019-09-14 | Outpatient (CLI) | payer MEDICARE ==
--- NOTE | 2019-09-15 09:01 | REP ---
REASON: Foot pain after trauma. There are no priors. FINDINGS: The joint spaces are symmetric and relatively well maintained. There is no evidence of acute fracture or destructive osseous lesion. IMPRESSION: Negative. There has been previous ORIF of the ankle. Electronically Signed by Domenico Farah DO 09/15/2019 09:24 A
--- NOTE | 2019-09-15 09:03 | REP ---
REASON: Left foot pain. COMPARISON: 11/28/2015 There has been ORIF since the last exam. The distal fibular fracture has healed. There is no acute abnormality. Electronically Signed by Domenico Farah DO 09/15/2019 09:24 A
== END ==
LOC: M LRY 16:40
PROVIDERS: ATTEND Nurse Practitioner Family
DX: S99.922A Unspecified injury of left foot, initial encounter (principal); S99.912A Unspecified injury of left ankle, initial encounter; W19.XXXA Unspecified fall, initial encounter; Y92.9 Unspecified place or not applicable

== ENCOUNTER → 2019-10-28 | Outpatient (CLI) | payer MEDICARE ==
[~2019-10-28] MED LIST changes: +OMEP-172 PO; -OMEP20CA4 PO; -SIMV40TA2 PO; +SIMV40TA20 PO
--- NOTE | 2019-10-28 09:22 | REPMRS ---
Patient History The patient states she has not had a clinical breast exam in over a year. Family history of pancreatic cancer at age 62 in father. No Hormone Replacement Therapy Digital Mammo Screening Bilat: October 28, 2019 - Exam #: [id number] Bilateral CC and MLO view(s) were taken. Technologist: Carlita Brooke Technologist Prior study comparison: May 30, 2018, bilateral digital woman screen mammo, performed at [facility] and [facility]. October 08, 2015, bilateral digital mammo screening bilat performed at [facility]. FINDINGS: There are scattered fibroglandular densities. There has been no change in the appearance of the mammogram from the prior studies. There is a mild amount of scattered fibroglandular density which is fairly symmetric. There is no interval development of dominant mass, architectural distortion, or grouped microcalcification suggestive of malignancy. 3-D tomosynthesis shows no additional findings. Assessment: BI-RADS/ACR category 1 mammogram. Negative Mammogram. Recommendation Routine screening mammogram of both breasts in 1 year (for women over age 40). This patient's Lifetime Breast Cancer Risk is estimated at 4.3 %. This mammogram was interpreted with the aid of an FDA-approved computer-aided dectection system. Electronically Signed By: Candelario Shay MD 10/28/19 0921
== END ==
LOC: M RAD 08:29
PROVIDERS: ATTEND Obstetrics & Gynecology
DX: Z12.31 Encounter for screening mammogram for malignant neoplasm of breast (principal); Z80.0 Family history of malignant neoplasm of digestive organs

== ENCOUNTER → 2019-11-01 | Outpatient (CLI) | payer MEDICARE ==
[~2019-11-01] MED LIST changes: -OMEP-172 PO; +OMEP1CAP73 PO
[2019-11-01 19:05] LABS: BLOOD UREA NITROGEN 23 MG/DL (7-18); CALCIUM LEVEL 9.6 MG/DL (8.8-10.2); CARBON DIOXIDE LEVEL 32 MEQ/L (21-32); CHLORIDE LEVEL 105 MEQ/L (98-107); FREE T4 0.72 NG/DL (0.76-1.46); GLOMERULAR FILTRATION RATE > 60.0 (>45); GLUCOSE, FASTING 114 MG/DL (70-100); SODIUM LEVEL 142 MEQ/L (136-145)
== END ==
LOC: M PLALAB 15:48
PROVIDERS: ATTEND Obstetrics & Gynecology
DX: Z13.1 Encounter for screening for diabetes mellitus (principal)

== ENCOUNTER → 2019-12-13 | Outpatient (CLI) | payer MEDICARE ==
[2019-12-13 16:00] LABS: HEMATOCRIT 42.6 % (36.0-47.0); HEMOGLOBIN 13.7 g/dl (12.0-15.5); MEAN CORPUSCULAR HEMOGLOBIN 32.2 pg (27.0-33.0); MEAN CORPUSCULAR HGB CONC 32.2 g/dl (32.0-36.5); MEAN CORPUSCULAR VOLUME 100.2 fl (80.0-96.0); PLATELET COUNT, AUTOMATED 228 10^3/uL (150-450); RED BLOOD COUNT 4.25 10^6/uL (4.00-5.40); WHITE BLOOD COUNT 4.8 10^3/uL (4.0-10.0)
[2019-12-13 16:24] LABS: ALBUMIN 3.8 GM/DL (3.2-5.2); ALT/SGPT 17 U/L (12-78); BILIRUBIN,TOTAL 0.4 MG/DL (0.2-1.0); BLOOD UREA NITROGEN 27 MG/DL (7-18); CALCIUM LEVEL 9.8 MG/DL (8.8-10.2); CARBON DIOXIDE LEVEL 33 MEQ/L (21-32); CHLORIDE LEVEL 107 MEQ/L (98-107); CHOLESTEROL LEVEL 198 MG/DL (<200); CHOLESTEROL RISK RATIO 3.193 (<5); CREATININE FOR GFR 0.92 MG/DL (0.55-1.30); FREE T4 0.87 NG/DL (0.76-1.46); GLOMERULAR FILTRATION RATE > 60.0 (>45); GLUCOSE, FASTING 109 MG/DL (70-100); HDL CHOLESTEROL 62 MG/DL (>40); LDL CHOLESTEROL 105 MG/DL (<100); NON-HDL-C 136 MG/DL; POTASSIUM SERUM 4.2 MEQ/L (3.5-5.1); SODIUM LEVEL 141 MEQ/L (136-145); TOTAL PROTEIN 7.1 GM/DL (6.4-8.2); TRIGLYCERIDES LEVEL 155 MG/DL (<150)
== END ==
LOC: M PLALAB 11:30
PROVIDERS: ATTEND Family Medicine
DX: R53.83 Other fatigue (principal); E03.9 Hypothyroidism, unspecified; E78.00 Pure hypercholesterolemia, unspecified; G89.29 Other chronic pain

== ENCOUNTER → 2020-08-26 | Outpatient (CLI) | payer MEDICARE ==
--- NOTE | 2020-08-26 14:49 | REPPI ---
INDICATION: R05 COUGH. COMPARISON: Comparison chest x-ray June 12, 2017. TECHNIQUE: Two views.. FINDINGS: The lungs are well inflated and free of infiltrate. The pleural angles are sharp. The heart size is normal. Pulmonary vasculature is not increased. No significant bony abnormality is seen. There is linear platelike atelectasis in the lingular segment of the left upper lobe at the left lung base. IMPRESSION: Linear platelike atelectasis left lung base in the lingular segment of the left upper lobe. Otherwise no active disease.. <Electronically signed by Candelario Shay > 08/26/20 [id number]
== END ==
LOC: M PLAIMG 11:25
PROVIDERS: ATTEND Family Medicine
DX: R05 Cough (principal)

== ENCOUNTER → 2020-09-24 | Outpatient (CLI) | payer MEDICARE ==
--- NOTE | 2020-09-24 13:52 | REPPI ---
INDICATION: M54.2 CERVICAL SPINE PAIN. COMPARISON: None. TECHNIQUE: Seven views. FINDINGS: Lateral views of the cervical spine done in flexion extension and neutral position show no subluxation or instability. Vertebral body heights are preserved. Alignment is normal. There is degenerative disc narrowing at C4-5 C5-6. Anterior osteophyte formation is seen at C5-6. Open mouth odontoid view is unremarkable. On the AP radiograph there is minimal facet hypertrophy bilaterally. Oblique images demonstrate right-sided uncovertebral spurring at the C3-4 and C4-5 disc levels. There is left-sided uncovertebral spurring at C 4 5 and 5 6. IMPRESSION: Degenerative spondylosis changes most pronounced at C5-6 as described above. <Electronically signed by Candelario Shay > 09/24/20 [id number]
== END ==
LOC: M PLAIMG 10:19
PROVIDERS: ATTEND Family Medicine
DX: M50.321 Other cervical disc degeneration at C4-C5 level (principal); M50.322 Other cervical disc degeneration at C5-C6 level; M25.78 Osteophyte, vertebrae

== ENCOUNTER 2021-06-02 18:57 | Emergency (ER) | payer MEDICARE ==
[~2021-06-02] VITALS: Ht 162.6 cm; Wt 80.5 kg
[2021-06-02] MEDS ORDERED: ASPIRIN 81 MG CHEW TABLET PO ONE (19:50)
[2021-06-02] MEDS ORDERED: NITROGLYCERIN 0.4 MG SUBL TABLET SL PRN (19:50)
[2021-06-02 20:12] LABS: BASO # 0.1 10^3/uL (0.0-0.2); BASO % 0.6 % (0.0-1.0); EOS # 0.1 10^3/uL (0.0-0.5); EOS % 1.4 % (0.0-3.0); HEMATOCRIT 37.5 % (36.0-47.0); HEMOGLOBIN 12.3 g/dl (12.0-15.5); LYMPH # 1.2 10^3/uL (1.5-5.0); LYMPH % 15.2 % (24.0-44.0); MEAN CORPUSCULAR HEMOGLOBIN 32.8 pg (27.0-33.0); MEAN CORPUSCULAR HGB CONC 32.8 g/dl (32.0-36.5); MONO # 0.8 10^3/uL (0.0-0.8); MONO % 10.4 % (2.0-8.0); NEUTROPHILS # 5.7 10^3/uL (1.5-8.5); NEUTROPHILS % 72.1 % (36.0-66.0); PLATELET COUNT, AUTOMATED 190 10^3/uL (150-450); RED BLOOD COUNT 3.75 10^6/uL (4.00-5.40); WHITE BLOOD COUNT 7.9 10^3/uL (4.0-10.0)
[2021-06-02 20:51] LABS: ALBUMIN 3.4 GM/DL (3.2-5.2); ALT/SGPT 18 U/L (12-78); BILIRUBIN,DIRECT < 0.1 MG/DL (0.0-0.2); BILIRUBIN,TOTAL 0.3 MG/DL (0.2-1.0); BLOOD UREA NITROGEN 18 MG/DL (7-18); CALCIUM LEVEL 8.8 MG/DL (8.8-10.2); CARBON DIOXIDE LEVEL 31 MEQ/L (21-32); CHLORIDE LEVEL 108 MEQ/L (98-107); CK-MB VALUE MASS < 1.0 NG/ML (<3.6); CPK CREATINE PHOSPHOKINASE 51 U/L (26-192); CREATININE FOR GFR 0.88 MG/DL (0.55-1.30); FREE T4 0.72 NG/DL (0.76-1.46); GLOMERULAR FILTRATION RATE > 60.0 (>45); GLUCOSE, FASTING 107 MG/DL (70-100); LIPASE 94 U/L (73-393); MB/CK RELATIVE INDEX 1.96 (< OR =4); POTASSIUM SERUM 4.1 MEQ/L (3.5-5.1); SODIUM LEVEL 141 MEQ/L (136-145); TOTAL PROTEIN 6.6 GM/DL (6.4-8.2); TROPONIN I < 0.02 NG/ML (< 0.10)
--- NOTE | 2021-06-02 21:28 | REPVR ---
PROCEDURE INFORMATION: Exam: XR Chest Exam date and time: 06/02/2021 8:08 PM Age: 65 years old Clinical indication: Dyspnea; Chest wall pain; Additional info: Chest pain TECHNIQUE: Imaging protocol: XR of the chest. Views: 2 views. COMPARISON: CR CHEST 2 VIEWS 08/26/2020 11:39 AM FINDINGS: Lungs: Minimal atelectasis at bilateral lung bases. No focal consolidations. Pleural spaces: Unremarkable. No pleural effusion. No pneumothorax. Heart/Mediastinum: Unremarkable. No cardiomegaly. Bones/joints: Degenerative changes of the spine. IMPRESSION: Minimal atelectasis at bilateral lung bases. Electronically signed by: Khang Nj On 06/02/2021 21:27:46 PM
[2021-06-02] MEDS ORDERED: ISOVUE-370 76% 100ML VIAL As Ordered ONE (21:44)
[2021-06-02] MEDS ORDERED: MORPHINE 4 MG/ML 1ML VIAL/SYRINGE (J2270) IV ONE (22:05)
--- NOTE | 2021-06-02 22:27 | REPVR ---
PROCEDURE INFORMATION: Exam: CTA Chest With Contrast Exam date and time: 06/02/2021 10:03 PM Age: 65 years old Clinical indication: Shortness of breath; Additional info: Chest pain SOB TECHNIQUE: Imaging protocol: Computed tomographic angiography of the chest with contrast. 3D rendering (Not supervised by radiologist): MIP and/or 3D reconstructed images were created by the technologist. Radiation optimization: All CT scans at this facility use at least one of these dose optimization techniques: automated exposure control; mA and/or kV adjustment per patient size (includes targeted exams where dose is matched to clinical indication); or iterative reconstruction. Contrast material: ISOVUE 370; Contrast volume: 75 ml; Contrast route: INTRAVENOUS (IV); COMPARISON: CT ANGIO CHEST 11/24/2018 7:33 PM FINDINGS: Pulmonary arteries: Normal. No pulmonary emboli. Aorta: Unremarkable. No aortic aneurysm. No aortic dissection. Lungs: 8 mm nodule in the left upper lobe. 6 mm nodule in the right upper lobe. Mild atelectasis at bilateral lung bases. Pleural spaces: Unremarkable. No pneumothorax. No pleural effusion. Heart: Unremarkable. No cardiomegaly. No pericardial effusion. Lymph nodes: Unremarkable. No enlarged lymph nodes. Bones/joints: Unremarkable. No acute fracture. Soft tissues: Unremarkable. IMPRESSION: No pulmonary embolism. Nodules in the bilateral upper lobes with the largest measuring 8 mm in the left upper lobe.For patients at low risk (minimal or absent history of smoking and of other known risk factors), recommend CT Chest at 3-6 months, then consider CT Chest at 18-24 months. For patients at high risk (history of smoking or of other known risk factors), recommend CT Chest at 3-6 months, then CT Chest at 18-24 months. (Reference: Olga) References: Olga Reyes et al. Guidelines for Management of Incidental Pulmonary Nodules Detected on CT Images: From the Fleischner Society 2017. Radiology. 2017;284(1):228-243. Electronically signed by: Khang Nj On 06/02/2021 22:26:53 PM
[2021-06-03 01:56] LABS: CK-MB VALUE MASS 1.3 NG/ML (<3.6); CPK CREATINE PHOSPHOKINASE 57 U/L (26-192); MB/CK RELATIVE INDEX 2.28 (< OR =4); TROPONIN I < 0.02 NG/ML (< 0.10)
[2021-06-03 03:00] VITALS: BP 125/68
--- NOTE | 2021-06-03 06:46 | ECGEPIP ---
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
--- NOTE | 2021-06-03 06:51 | ECGEPIP ---
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
== END 2021-06-03 03:13 | disposition home or self-care (01) ==
LOC: M ED 18:57
DX: R07.9 Chest pain, unspecified (principal); R91.8 Other nonspecific abnormal finding of lung field; R06.02 Shortness of breath; J98.11 Atelectasis; E78.5 Hyperlipidemia, unspecified; D64.9 Anemia, unspecified; K21.9 Gastro-esophageal reflux disease without esophagitis; G89.29 Other chronic pain; M54.5 Low back pain; E66.9 Obesity, unspecified; F33.9 Major depressive disorder, recurrent, unspecified; Z87.891 Personal history of nicotine dependence; Z79.899 Other long term (current) drug therapy
CPT/HCPCS: 71046; 71275; 80048; 80076; 82550; 82553; 83690; 84439; 84443; 84484; 85025; 93005; 93041; 94760; 96374; 99285; J2270; Q9967

== ENCOUNTER → 2021-07-02 | Outpatient (CLI) | payer MEDICARE ==
--- NOTE | 2021-07-02 12:28 | DEXAMM ---
INDICATION: SCREENING FOR OSTEOPOROSIS. COMPARISON: November 13, 2008 TECHNIQUE: Bone density was measured using dual-energy x-ray absorptionmetry (DEXA). FINDINGS: AP SPINE L1-L4 BMD 1.049 g/cm2 Young Adult T-Score -1.2 Age Matched Z-Score 0.5. LT FEMUR, TOTAL BMD 0.851 g/cm2 Young Adult T-Score -1.2 Age Matched Z-Score 0.1. LT NECK BMD 0.811 g/cm2 Young Adult T-Score -1.6 Age Matched Z-Score -0.1. RT FEMUR, TOTAL BMD 0.812 g/cm2 Young Adult T-Score -1.6 Age Matched Z-Score -0.2. RT NECK BMD 0.765 g/cm2 Young Adult T-Score -2.0 Age Matched Z-Score -0.4. IMPRESSION: There is low bone density of the spine. There is low bone density of the left hip. There is low bone density of the right hip. The density of the spine has decreased 3.8% since the initial exam on 13 November 2008. The density of the left hip has decreased 4.1% since initial exam on 13 November 2008. The density of the right hip has decreased 7.2% since the initial exam on 13 November 2008. FOLLOW-UP: Recommendation for the next bone density exam: 2 years. <Electronically signed by Candelario Shay > 07/02/21 [id number]
== END ==
LOC: M WHC 11:27
PROVIDERS: ATTEND Family Medicine
DX: Z13.820 Encounter for screening for osteoporosis (principal); M85.88 Other specified disorders of bone density and structure, other site; M85.851 Other specified disorders of bone density and structure, right thigh; M85.852 Other specified disorders of bone density and structure, left thigh

== ENCOUNTER → 2021-09-27 | Outpatient (CLI) | payer MEDICARE ==
[2021-09-27 14:08] LABS: ALBUMIN 3.5 GM/DL (3.2-5.2); ALT/SGPT 15 U/L (12-78); BILIRUBIN,TOTAL 0.5 MG/DL (0.2-1.0); BLOOD UREA NITROGEN 21 MG/DL (7-18); CALCIUM LEVEL 10.1 MG/DL (8.8-10.2); CARBON DIOXIDE LEVEL 32 MEQ/L (21-32); CHLORIDE LEVEL 109 MEQ/L (98-107); CHOLESTEROL LEVEL 191 MG/DL (<200); CHOLESTEROL RISK RATIO 2.938 (<5); CREATININE FOR GFR 0.86 MG/DL (0.55-1.30); GLOMERULAR FILTRATION RATE > 60.0 (>45); GLUCOSE, FASTING 102 MG/DL (70-100); HDL CHOLESTEROL 65 MG/DL (>40); LDL CHOLESTEROL 100 MG/DL (<100); NON-HDL-C 126 MG/DL; POTASSIUM SERUM 4.3 MEQ/L (3.5-5.1); SODIUM LEVEL 145 MEQ/L (136-145); TOTAL 25(OH) VITAMIN D 30.8 NG/ML (30.0-100.0); TOTAL PROTEIN 6.5 GM/DL (6.4-8.2); TRIGLYCERIDES LEVEL 130 MG/DL (<150)
[2021-09-27 14:16] LABS: HEMOGLOBIN A1c 5.5 %
== END ==
LOC: M PLALAB 10:10
PROVIDERS: ATTEND Family Medicine
DX: Z13.820 Encounter for screening for osteoporosis (principal); Z13.1 Encounter for screening for diabetes mellitus; E78.00 Pure hypercholesterolemia, unspecified; E55.9 Vitamin D deficiency, unspecified; E03.9 Hypothyroidism, unspecified; F51.01 Primary insomnia; Z79.899 Other long term (current) drug therapy

== ENCOUNTER → 2021-10-08 | Outpatient (CLI) | payer MEDICARE ==
[~2021-10-08] MED LIST changes: +ISOVUE-370 76% 100ML VIAL ONE
== END ==
LOC: M PLAIMG 11:28
PROVIDERS: ATTEND Family Medicine
DX: R91.1 Solitary pulmonary nodule (principal)
CPT/HCPCS: 71260; Q9967

== ENCOUNTER → 2022-03-31 | Outpatient (CLI) | payer MEDICARE ==
[~2022-03-31] MED LIST changes: -ACET1TAB16; +ACET300T48; -ISOVUE-370 76% 100ML VIAL ONE
== END ==
LOC: M RAD 11:22
PROVIDERS: ATTEND Family Medicine
DX: R10.30 Lower abdominal pain, unspecified (principal); N83.291 Other ovarian cyst, right side; D25.9 Leiomyoma of uterus, unspecified

== ENCOUNTER → 2022-06-20 | Outpatient (CLI) | payer MEDICARE | LOC: M WHC 13:00 | PROVIDERS: ATTEND Family Medicine | DX: Z12.31 Encounter for screening mammogram for malignant neoplasm of breast (principal) ==

== ENCOUNTER → 2022-07-20 | Outpatient (CLI) | payer MEDICARE ==
[2022-07-20 14:20] LABS: ALBUMIN 3.7 GM/DL (3.2-5.2); ALT/SGPT 17 U/L (12-78); BILIRUBIN,TOTAL 0.4 MG/DL (0.2-1.0); BLOOD UREA NITROGEN 21 MG/DL (7-18); CALCIUM LEVEL 9.4 MG/DL (8.8-10.2); CARBON DIOXIDE LEVEL 32 MEQ/L (21-32); CHLORIDE LEVEL 106 MEQ/L (98-107); CHOLESTEROL LEVEL 176 MG/DL (<200); CHOLESTEROL RISK RATIO 2.588 (<5); GLOMERULAR FILTRATION RATE > 60.0 (>45); GLUCOSE, FASTING 89 MG/DL (70-100); HDL CHOLESTEROL 68 MG/DL (>40); LDL CHOLESTEROL 88 MG/DL (<100); NON-HDL-C 108 MG/DL; POTASSIUM SERUM 4.2 MEQ/L (3.5-5.1); SODIUM LEVEL 142 MEQ/L (136-145); TOTAL PROTEIN 6.8 GM/DL (6.4-8.2); TRIGLYCERIDES LEVEL 100 MG/DL (<150)
[2022-07-20 14:52] LABS: TOTAL 25(OH) VITAMIN D 33.1 NG/ML (30.0-100.0)
== END ==
LOC: M PLALAB 11:18
PROVIDERS: ATTEND Family Medicine
DX: E03.9 Hypothyroidism, unspecified (principal); E78.00 Pure hypercholesterolemia, unspecified; E55.9 Vitamin D deficiency, unspecified; Z79.899 Other long term (current) drug therapy

== ENCOUNTER → 2023-02-10 | Outpatient (REF) | payer MEDICARE | LOC: M SFHCPLAZ 11:56 | PROVIDERS: ATTEND Family Medicine | DX: Z53.9 Procedure and treatment not carried out, unspecified reason (principal) ==

== ENCOUNTER → 2023-02-10 | Outpatient (CLI) | payer MEDICARE ==
[2023-02-10 15:44] LABS: ALBUMIN 3.9 G/DL (3.2-5.2); ALKALINE PHOSPHATASE 55 U/L (46-116); ALT/SGPT 11 U/L (7.0-40); AST/SGOT 13 U/L (<34); BILIRUBIN,TOTAL 0.4 MG/DL (0.3-1.2); BLOOD UREA NITROGEN 23 MG/DL (9-23); CALCIUM LEVEL 9.5 MG/DL (8.3-10.6); CARBON DIOXIDE LEVEL 31 MMOL/L (20-31); CHLORIDE LEVEL 105 MMOL/L (98-107); CREATININE FOR GFR 0.95 MG/DL (0.55-1.30); GLOMERULAR FILTRATION RATE > 60.0 (>45); GLUCOSE, FASTING 99 MG/DL (74-106); POTASSIUM SERUM 4.3 MMOL/L (3.5-5.1); SODIUM LEVEL 141 MMOL/L (136-145)
[2023-02-10 15:45] LABS: BASO # 0.1 10^3/uL (0.0-0.2); BASO % 1.1 % (0.0-1.0); EOS # 0.2 10^3/uL (0.0-0.5); EOS % 2.6 % (0.0-3.0); HEMATOCRIT 40.6 % (36.0-47.0); HEMOGLOBIN 13.2 g/dl (12.0-15.5); LYMPH # 1.8 10^3/uL (1.5-5.0); LYMPH % 29.4 % (24.0-44.0); MEAN CORPUSCULAR HEMOGLOBIN 33.6 pg (27.0-33.0); MEAN CORPUSCULAR HGB CONC 32.5 g/dl (32.0-36.5); MEAN CORPUSCULAR VOLUME 103.3 fl (80.0-96.0); MONO # 0.4 10^3/uL (0.0-0.8); MONO % 6.5 % (2.0-8.0); NEUTROPHILS # 3.7 10^3/uL (1.5-8.5); NEUTROPHILS % 60.1 % (36.0-66.0); PLATELET COUNT, AUTOMATED 236 10^3/uL (150-450); RED BLOOD COUNT 3.93 10^6/uL (4.00-5.40); WHITE BLOOD COUNT 6.2 10^3/uL (4.0-10.0)
[2023-02-10 15:46] LABS: TOTAL 25(OH) VITAMIN D 33.8 NG/ML (20.0-100.0)
== END ==
LOC: M PLALAB 12:29
PROVIDERS: ATTEND Family Medicine
DX: R10.32 Left lower quadrant pain (principal); E55.9 Vitamin D deficiency, unspecified

== ENCOUNTER → 2023-03-23 | Outpatient (CLI) | payer MEDICARE ==
[~2023-03-23] MED LIST changes: +GASTROGRAFIN SOLUTION 30ML As Ordered ONE; +ISOVUE-370 76% 100ML VIAL As Ordered ONE
== END ==
LOC: M RAD 12:03
PROVIDERS: ATTEND Family Medicine
DX: R10.32 Left lower quadrant pain (principal); N83.201 Unspecified ovarian cyst, right side
CPT/HCPCS: 74178; Q9963; Q9967

== ENCOUNTER → 2023-06-29 | Outpatient (CLI) | payer MEDICARE ==
[~2023-06-29] MED LIST changes: -GASTROGRAFIN SOLUTION 30ML As Ordered ONE; -ISOVUE-370 76% 100ML VIAL As Ordered ONE
[2023-06-29 15:09] LABS: CHOLESTEROL RISK RATIO 2.96 (<5); HDL CHOLESTEROL 59.3 MG/DL (>40); LDL CHOLESTEROL 94.9 MG/DL (<100); NON-HDL-C 116.7 MG/DL; THYROID STIMULATING HORMONE 2.669 uIU/ML (0.55-4.78)
== END ==
LOC: M PLAIMG 11:48
PROVIDERS: ATTEND Family Medicine
DX: M51.36 Other intervertebral disc degeneration, lumbar region (principal); E03.9 Hypothyroidism, unspecified; E78.00 Pure hypercholesterolemia, unspecified

== ENCOUNTER → 2023-07-25 | Outpatient (CLI) | payer MEDICARE ==
[2023-07-25 13:54] LABS: FOLATE 14.2 NG/ML (>5.4)
[2023-07-28 14:09] LABS: HOMOCYST(E)INE SERUM 11.7 umol/L (0.0-17.2); Methylmalonic Acid 219 nmol/L (0-378)
== END ==
LOC: M LAB 12:07
PROVIDERS: ATTEND Family Medicine
DX: G62.9 Polyneuropathy, unspecified (principal)

== ENCOUNTER → 2024-01-02 | Outpatient (CLI) | payer MEDICARE | LOC: M RAD 12:58 | PROVIDERS: ATTEND Student in an Organized Health Care Education/Training Program | DX: J98.11 Atelectasis (principal); M19.011 Primary osteoarthritis, right shoulder; M50.322 Other cervical disc degeneration at C5-C6 level ==

== ENCOUNTER → 2024-01-09 | Outpatient (REF) | payer MEDICARE | LOC: M SFHCPLAZ 10:30 | PROVIDERS: ATTEND Student in an Organized Health Care Education/Training Program | DX: R05.3 Chronic cough (principal) ==

== ENCOUNTER → 2024-05-02 | Outpatient (REF) | payer MEDICARE | LOC: M SFHCPLAZ 14:18 | PROVIDERS: ATTEND Family Medicine | DX: R05.8 Other specified cough (principal) ==

== ENCOUNTER → 2024-05-02 | Outpatient (CLI) | payer MEDICARE ==
[2024-05-02 15:46] LABS: BASO # 0.1 10^3/uL (0.0-0.2); BASO % 1.2 % (0.0-1.0); EOS # 0.2 10^3/uL (0.0-0.5); EOS % 2.6 % (0.0-3.0); HEMATOCRIT 41.5 % (36.0-47.0); HEMOGLOBIN 13.6 g/dl (12.0-15.5); LYMPH # 1.6 10^3/uL (1.5-5.0); LYMPH % 21.7 % (24.0-44.0); MEAN CORPUSCULAR HGB CONC 32.8 g/dl (32.0-36.5); MEAN CORPUSCULAR VOLUME 103.8 fl (80.0-96.0); MONO # 0.4 10^3/uL (0.0-0.8); MONO % 5.6 % (2.0-8.0); NEUTROPHILS # 5.2 10^3/uL (1.5-8.5); NEUTROPHILS % 68.8 % (36.0-66.0); PLATELET COUNT, AUTOMATED 235 10^3/uL (150-450); WHITE BLOOD COUNT 7.6 10^3/uL (4.0-10.0)
== END ==
LOC: M PLALAB 12:12
PROVIDERS: ATTEND Family Medicine
DX: R05.8 Other specified cough (principal); F33.2 Major depressive disorder, recurrent severe without psychotic features

== ENCOUNTER → 2024-10-09 | Outpatient (CLI) | payer MEDICARE ==
[~2024-10-09] MED LIST changes: -CYCL5TAB PO; +CYCL5TAB4 PO
[2024-10-09 17:35] LABS: HEMATOCRIT 39.7 % (36.0-47.0); HEMOGLOBIN 13.3 g/dl (12.0-15.5); MEAN CORPUSCULAR HEMOGLOBIN 33.8 pg (27.0-33.0); MEAN CORPUSCULAR HGB CONC 33.5 g/dl (32.0-36.5); PLATELET COUNT, AUTOMATED 210 10^3/uL (150-450); RED BLOOD COUNT 3.93 10^6/uL (4.00-5.40); WHITE BLOOD COUNT 6.6 10^3/uL (4.0-10.0)
== END ==
LOC: M PLALAB 16:22
PROVIDERS: ATTEND Physician Assistant Medical
DX: J06.9 Acute upper respiratory infection, unspecified (principal); R53.81 Other malaise; R53.83 Other fatigue

== ENCOUNTER → 2025-07-15 | Outpatient (CLI) | payer MEDICARE ==
[~2025-07-15] MED LIST changes: -HEPA500011 SC; +HEPA50002 SC; -ZOLP5TAB PO; +ZOLP5TAB9 PO
[2025-07-15 14:56] LABS: PLATELET COUNT, AUTOMATED 253 10^3/uL (150-450)
[2025-07-15 15:15] LABS: ALT/SGPT < 9 U/L (7.0-40); AST/SGOT 15 U/L (<34); CALCIUM LEVEL 9.3 MG/DL (8.3-10.6); CARBON DIOXIDE LEVEL 32 MMOL/L (20-31); CHLORIDE LEVEL 105 MMOL/L (98-107); CHOLESTEROL LEVEL 186 MG/DL (<200); CHOLESTEROL RISK RATIO 3.49 (<5); CREATININE FOR GFR 0.93 MG/DL (0.55-1.30); GLOMERULAR FILTRATION RATE 65.7 (>39); LDL CHOLESTEROL 109.4 MG/DL (<100); NON-HDL-C 132.8 MG/DL; POTASSIUM SERUM 4.5 MMOL/L (3.5-5.1); SODIUM LEVEL 143 MMOL/L (136-145); TRIGLYCERIDES LEVEL 117 MG/DL (<150)
[2025-07-15 15:34] LABS: TOTAL 25(OH) VITAMIN D 38.4 NG/ML (20.0-100.0); VITAMIN B12 LEVEL 335 PG/ML (211-911)
[2025-07-15 19:47] LABS: ESTIMATED AVERAGE GLUCOSE 111.0 MG/DL (60-110)
== END ==
LOC: M PLALAB 11:11
PROVIDERS: ATTEND Family Medicine
DX: D51.9 Vitamin B12 deficiency anemia, unspecified (principal); Z12.11 Encounter for screening for malignant neoplasm of colon; Z12.12 Encounter for screening for malignant neoplasm of rectum; G25.0 Essential tremor; E78.00 Pure hypercholesterolemia, unspecified; E55.9 Vitamin D deficiency, unspecified; Z13.1 Encounter for screening for diabetes mellitus; E03.9 Hypothyroidism, unspecified

== ENCOUNTER 2025-08-10 11:40 | Emergency (ER) | payer MEDICARE ==
[~2025-08-10] VITALS: Ht 160 cm; Wt 80.9 kg
[2025-08-10 11:46] VITALS: BP 118/57; TEMP 98.2; O2SAT 99
== END 2025-08-10 13:20 | disposition left against medical advice (07) ==
LOC: M ED 11:40
DX: Z53.21 Procedure and treatment not carried out due to patient leaving prior to being seen by health care provider (principal)

== ENCOUNTER 2025-08-15 15:03 | Observation (INO) | payer MEDICARE ==
[~2025-08-15] VITALS: Ht 160 cm; Wt 80.7 kg
[~2025-08-15 15:03] MED LIST changes: +AMOX400S2 PO; +AMOX875T PO
[2025-08-15 18:18] LABS: BASO # 0.1 10^3/uL (0.0-0.2); BASO % 0.4 % (0.0-1.0); EOS # 0.1 10^3/uL (0.0-0.5); EOS % 0.6 % (0.0-3.0); LYMPH # 1.4 10^3/uL (1.5-5.0); LYMPH % 11.1 % (24.0-44.0); MONO # 0.9 10^3/uL (0.0-0.8); MONO % 7.5 % (2.0-8.0); NEUTROPHILS # 9.8 10^3/uL (1.5-8.5); NEUTROPHILS % 79.9 % (36.0-66.0); PLATELET COUNT, AUTOMATED 273 10^3/uL (150-450)
[2025-08-15 18:48] LABS: CALCIUM LEVEL 9.3 MG/DL (8.3-10.6); CARBON DIOXIDE LEVEL 28.0 MMOL/L (20-31); CHLORIDE LEVEL 100.0 MMOL/L (98-107); CREATININE FOR GFR 0.82 MG/DL (0.55-1.30); GLOMERULAR FILTRATION RATE 76.4 (>39); POTASSIUM SERUM 3.1 MMOL/L (3.5-5.1); SODIUM LEVEL 140.0 MMOL/L (136-145)
[2025-08-15] MEDS: KETOROLAC 30 MG/ML 1 ML VIAL IV ONE (20:14)
[2025-08-15] MEDS: AMPICILLIN SOD/SULBACTAM SOD 3 GM in DEXTROSE 5% (D5W) MINI-BAG PLU 100 ML IV ONE (20:18)
[2025-08-15] MEDS ORDERED: ISOVUE-370 76% 100 ML VIAL As Ordered ONE (20:45)
[2025-08-15 21:07] LABS: MONO REFLEX EBV COMP NEGATIVE (NEGATIVE)
[2025-08-15] MEDS: NS (Normal Saline) 0.9% 1,000 ML IV ONE (21:25)
[2025-08-15] MEDS: ACETAMINOPHEN *IV* 1,000 MG in IV 1 EA IV ONE (22:00)
[2025-08-15] MEDS: LR 1,000 ML IV SCH (22:35)
[2025-08-15] MEDS: POTASSIUM CHLORIDE 10% LIQ 20MEQ/15ML UDC PO ONE (23:13)
[2025-08-15] MEDS: PANTOPRAZOLE 40MG VIAL IV ONE (23:13)
[2025-08-15] MEDS ORDERED: D 101000 PO (23:35)
[2025-08-15] MEDS ORDERED: GABA-284 PO (23:35)
[2025-08-15] MEDS ORDERED: PROP60CA PO (23:44)
[2025-08-15] MEDS ORDERED: ACET300T52 PO (23:44)
[2025-08-15] MEDS ORDERED: FLUO40CA PO (23:44)
[2025-08-15] MEDS ORDERED: [UNRECOGNIZED DRUG - CODE] PO (23:44)
[2025-08-15] MEDS ORDERED: ZOLP10TA11 PO (23:44)
[2025-08-15] MEDS ORDERED: TIZA2TA PO (23:44)
[2025-08-15] MEDS ORDERED: HOME MED LIST COMPLETE! XX SCH (23:45)
[2025-08-16 00:30] VITALS: BP 143/70; TEMP 97.4; O2SAT 97
[2025-08-16] MEDS: KETOROLAC 30 MG/ML 1 ML VIAL IV PRN (01:16)
[2025-08-16] MEDS: AMPICILLIN SOD/SULBACTAM SOD 3 GM in DEXTROSE 5% (D5W) MINI-BAG PLU 100 ML IV SCH (01:25)
[2025-08-16] MEDS: dexAMETHasone 4 MG/ML 1 ML VIAL IV SCH (02:44)
[2025-08-16 05:40] VITALS: BP 149/81; TEMP 97.2; O2SAT 95
[2025-08-16] MEDS ORDERED: DEXTROSE 50% 50 ML SYRINGE IV PRN (07:35)
[2025-08-16] MEDS ORDERED: GLUCAGON INJ 1 MG VIAL SC PRN (07:35)
[2025-08-16] MEDS ORDERED: GLUCOSE 4 GM CHEW PO PRN (07:35)
[2025-08-16] MEDS: ONDANSETRON 4MG/2ML VIAL IV PRN (08:11)
[2025-08-16 08:30] LABS: BASO # 0.0 10^3/uL (0.0-0.2); BASO % 0.1 % (0.0-1.0); EOS # 0.0 10^3/uL (0.0-0.5); EOS % 0.0 % (0.0-3.0); LYMPH # 0.6 10^3/uL (1.5-5.0); LYMPH % 6.8 % (24.0-44.0); MONO # 0.1 10^3/uL (0.0-0.8); MONO % 1.0 % (2.0-8.0); NEUTROPHILS # 8.5 10^3/uL (1.5-8.5); NEUTROPHILS % 91.5 % (36.0-66.0); PLATELET COUNT, AUTOMATED 265 10^3/uL (150-450)
[2025-08-16 09:01] LABS: CALCIUM LEVEL 9.0 MG/DL (8.3-10.6); CARBON DIOXIDE LEVEL 26 MMOL/L (20-31); CHLORIDE LEVEL 105 MMOL/L (98-107); CREATININE FOR GFR 0.61 MG/DL (0.55-1.30); GLOMERULAR FILTRATION RATE > 90.0 (>39); MAGNESIUM LEVEL 1.6 MG/DL (1.8-2.4); POTASSIUM SERUM 3.8 MMOL/L (3.5-5.1); SODIUM LEVEL 141 MMOL/L (136-145)
[2025-08-16] MEDS: OMEPRAZOLE 20MG CAP PO SCH (10:04)
[2025-08-16] MEDS: GABAPENTIN 400 MG CAP PO SCH (10:04)
[2025-08-16 11:18] VITALS: BP 151/77; TEMP 97.5; O2SAT 96
[2025-08-16] MEDS: MAG SULF 1GM/100ML (MAG RUN) 1 GM in IV 1 EA IV SCH (12:53)
[2025-08-16] MEDS ORDERED: AMOX875T2 PO (13:03)
[2025-08-16] MEDS ORDERED: MAGN400T35 PO (13:03)
[2025-08-16] MEDS ORDERED: PROBCAP14 PO (13:03)
[2025-08-16] MEDS ORDERED: SIMVASTATIN 40 MG TAB PO SCH (21:00)
[2025-08-16] MEDS ORDERED: PROPRANOLOL 60MG LA CAP PO SCH (21:00)
[2025-08-16] MEDS ORDERED: FLUoxetine 20 MG CAP PO SCH (21:00)
[2025-08-19 12:17] LABS: EBV AB TO NUCLEAR ANTIGEN > 600.00 U/mL (<18.00); EBV VIRAL CAPSID AG IGG 607.00 U/mL (<18.00); EBV VIRAL CAPSID AG IGM < 36.00 U/mL (<36.00)
== END 2025-08-16 16:35 | disposition home or self-care (01) ==
LOC: M ED 15:03 → M ED INP 15:04 → M MSPAV 08-16 00:35
PROVIDERS: ADMIT Student in an Organized Health Care Education/Training Program; ATTEND Student in an Organized Health Care Education/Training Program
DX: J36 Peritonsillar abscess (principal); R07.0 Pain in throat; R49.0 Dysphonia; J44.9 Chronic obstructive pulmonary disease, unspecified; K21.9 Gastro-esophageal reflux disease without esophagitis; F32.A Depression, unspecified; E78.5 Hyperlipidemia, unspecified; M54.50 Low back pain, unspecified; Z79.2 Long term (current) use of antibiotics; Z79.899 Other long term (current) drug therapy
CPT/HCPCS: 36415; 70491; 80047; 80048; 83605; 83735; 84443; 85025; 86308; 86664; 86665; 87040; 87486; 87581; 87633; 87798; 87880; 96361; 96365; 96366; 96375; 96376; 99284; G0378; J0131; J0295; J1100; J1885; J2405; J2470; J3475; Q9967

== ENCOUNTER → 2025-09-03 | Outpatient (CLI) | payer MEDICARE ==
[~2025-09-03] MED LIST changes: +ACET300T52 PO; +AMOX875T2 PO; +D 101000 PO; +FLUO40CA PO; +GABA-284 PO; +MAGN400T35 PO; +PROBCAP14 PO; +PROP60CA PO; +TIZA2TA PO; +ZOLP10TA11 PO; +[UNRECOGNIZED DRUG - CODE] PO
== END ==
LOC: M PLALAB 14:38
DX: M70.62 Trochanteric bursitis, left hip (principal)